=== PATIENT | male | born 1985 | race Caucasian/White ===

== ENCOUNTER 2021-09-11 07:38 | Outpatient (CLI) | payer BC, SELFPAY ==
--- NOTE | ~2021-09-11 | MR_ITS ---
EXAMINATION: MR MRCP wo/w con/w 3D wo ind DATE: 09/11/2021 09:48 INDICATION: Ulcerative pancolitis without complication. TECHNIQUE: Magnetic resonance imaging (MRI) of the abdomen was performed without and with 19 mL Multi Alen intravenous contrast. Sequences included coronal T2-weighted FS FSE, coronal T2-weighted FSE, a xial T1-weighted LAVA, coronal FS FIESTA, axial dual-echo T1-weighted SPGR, coronal lava-FLEX, sagitt al T2-weighted FSE, axial T2-weighted FSE, and axial DWI. Thick-slab T2-weighted FSE images were obta ined for magnetic resonance cholangiopancreatography (MRCP). Maximum intensity projection 3-D reconst ructions of the volumetric data were created by the technologist. Postcontrast sequences included cor onal LAVA-flex and time course of axial T1-weighted LAVA. COMPARISON: CT abdomen and pelvis 07/02/2009 FINDINGS: ABDOMEN MRI: There is severe splenomegaly measuring 25.2 cm. There are Gamna-Shannan bodies in the sple en. The liver, gallbladder, pancreas, adrenal glands, and kidneys are normal. There are no dilated lo ops of bowel. The colon is normal. There are no pathologically enlarged lymph nodes. There is no free intraperitoneal fluid. ABDOMEN MRCP: The common duct is normal and measures 4 mm. IMPRESSION: 1. Chronic severe splenomegaly. Reviewed, dictated and finalized at location B. WIRE GLASS TUBE CUTTER
[2021-09-11 09:02] LABS: Estimated Glomerular Filt Rate > 60
== END 2021-09-11 07:39 | disposition home or self-care (01) ==
DX: K51.00 Ulcerative (chronic) pancolitis without complications (principal); E80.6 Other disorders of bilirubin metabolism; R16.1 Splenomegaly, not elsewhere classified
CPT/HCPCS: 74183; 76376; A9577

== ENCOUNTER 2022-04-08 08:09 | Outpatient (CLI) | payer BC, SELFPAY ==
[2022-04-08 08:27] LABS: Hematocrit 32.8 % (42.0-52.0); Hemoglobin 11.8 g/dL (14.0-18.0)
== END 2022-04-08 08:10 | disposition home or self-care (01) ==
PROVIDERS: Anesthesiology; PCP Family Medicine; Visit Provider Surgery
DX: K40.90 Unilateral inguinal hernia, without obstruction or gangrene, not specified as recurrent (principal); D58.0 Hereditary spherocytosis; Z01.818 Encounter for other preprocedural examination
CPT/HCPCS: 36415; 85014; 85018; 86850; 86900; 86901

== ENCOUNTER 2022-04-09 00:27 | Day surgery (SDC) | payer BC, SELFPAY ==
[2022-04-01 08:33] VITALS: BMI 27.1
--- NOTE | 2022-04-01 08:44 | PC.NURSE ---
Report to the Outpatient Waiting Room, entrance under the green pavilion located off [facility], at time 6:00 on date 04/09/22. OR Time: 7:30. - You and your visitor will be asked a series of questions to screen for COVID 19 for your protection. - Only one visitor is allowed at this time. - The patient visitor is requested to leave or wait in car when not with patient. - A mask is required within the hospital. Patients may have clear liquids (water, carbonated beverages, clear teas, apple juice) until 3 hours prior to surgery (4:30) with a maximum of 20 ounces. - No food from midnight until time of surgery Take the following medications with a SIP of water the morning of surgery: NONE Medications to discontinue per physician: VITAMINS/SUPPLEMENTS Date to take last dose: 04/05/22 Please no make-up, nail v[place] citizen, hairspray, perfume, deodorant, or body powder the day of surgery. No jewelry (including any body piercings) or valuables the day of surgery, leave them at home. Please take a shower or bath the night before, or the morning of, surgery with an antibacterial soap. Wear comfortable, loose fitting clothing. HIBICLENS SHOWER - Jewelry must be removed prior to entering the operating room. Rings and piercings that are not removed may be cut off. - The hospital will not accept responsibility for valuables. - Please leave all valuables, including medications, at home the day of surgery. If you are going home after surgery, a licensed car pick up driver must drive you home. - NO public transportation without another adult. - We recommend that an adult stay with you for 24 hours following discharge. - We also recommend that you do not drive, make important decision, drink alcoholic beverages, or take any drugs that were not prescribed by your health care provider for at least 24 hours after your discharge time. Follow any additional instructions given to you from your surgeon. If you or anyone in your household have experienced Covid symptoms in the past week, please notify your surgeon or the nurse liaison at the phone number below for possible testing. Telephone instructions given to PT - PAVEL JIMENEZ and asked if any additional questions and then verbalized understanding. Patient advised to call surgeon office or pre surgery nurse liaison [phone] if any additional questions.
--- NOTE | 2022-04-08 14:51 | P.PNAN_ITS ---
Anes - Initial Pre Proc Eval Procedure: Operation Date: 04/09/22 07:30 Proposed Procedures p Laparoscopic Right Inguinal Hernia with Repair with Mesh, Davinci Assisted - Zeb Huertas DO s Umbilical Hernia Repair - Zeb Huertas DO Date/Time: 04/08/22 14:51 Surgeon: Zeb Huertas DO Pre Op Diagnosis: Right Ing Hernia, Umbilical Hernia Patient Data Age: 36 Gender: M Height: 1.83 m Weight: 90.72 kg Allergies Allergy/AdvReac Type Severity Reaction Status Date / Time Sulfa (Sulfonamide Allergy Unknown Other Verified 04/01/22 08:32 Antibiotics) sulfasalazine Allergy Unknown Other Verified 04/01/22 08:32 Home Medications Medication Instructions Recorded Confirmed Type ferrous sulfate 325 mg (65 mg 325 mg PO DAILY 04/01/22 04/01/22 History iron) tablet (Iron (ferrous sulfate)) multivitamin 1 tablet PO DAILY 04/01/22 04/01/22 History Patient hx anesthesia problems: none Family hx anesthesia problems: none Results Review: All pre-operative results and documents have been reviewed as part of the pre- operative evaluation. [facility] Past Medical History Medical History (Updated 04/08/22 @ 14:51 by Roc Flores MD) BMI 27.0-27.9,adult Hereditary spherocytosis Ulcerative colitis Surgical History Surgical History H/O knee surgery 1999 Family History Family History Father Family history of blood dyscrasia Patient's father is in good health Sibling Family history of blood dyscrasia Patient's sister is in good health Mother Patient's mother is in good health Family history of allergic disorder Other Family history of arthritis Family history of gout Hypertension Social History Social History Smoking status: Never smoker Alcohol intake: current Drinks per week: 3 Substance use: never Substance use type: does not use Living arrangements: with family Additional occupation/education comments: Insurance Rep Gender identity (if verbalized by the patient): Male Sexual Orientation (if Verbalized by the Patient): Straight or Heterosexual Spiritual care concerns: No Anes - Eval Final PreProcedure Day of Procedure 04/08/22 14:51 Patient weight: overweight Heart: regular rate and rhythm Lungs: clear to auscultation and normal air movement Airway: Mallampati scale class II Neurological: alert and oriented Last oral intake: >/= 8 hours ASA classification: II Emergent: no Anesthetic plan: proceed Anesthesia type and monitoring: general ETT Results Review: All pre-operative results and documents have been reviewed as part of the pre- operative evaluation. Informed Consent: The patient's anesthetic plan and its attendant risks and benefits were discussed with the patient/family/POA. Questions were solicited and answers provided to the satisfaction of the patient/family/POA.
[2022-04-09] VITALS (11 sets, daily range): BP systolic 107–131; BP diastolic 65–81; PULSE 62–85; RESP 10–20; TEMP 36.3–36.7; O2SAT 96–100
[2022-04-09] MEDS: LACTATED RINGERS 1,000 ML 30 ML IV CONT ×3 (06:40→11:25)
[2022-04-09] MEDS: ACETAMINOPHEN 500 MG TABLET 1000 MG PO (06:45)
[2022-04-09] MEDS: KETOROLAC 15 MG/ML VIAL (*BKC) IV PUSH (07:00)
--- NOTE | 2022-04-09 07:15 | WPDHPUPDATE1 ---
History and Physical Update Update Date/Time: 04/09/22 07:15 History and Physical has been reviewed, including an updated exam of the patient. There are NO changes in the patient's condition. Risks, benefits, and alternatives have been discussed and questions answered. Patient agrees to proceed with procedure.
[2022-04-09] MEDS: ceFAZolin 2 GM/D5W 50 ML 2 GM/50 ML BAG IVPB (07:27)
[2022-04-09] MEDS: BUPIVACAINE/EPINEPHRINE 0.25% 50 ML VIAL 30 ML INFILTRATE (07:53)
--- NOTE | 2022-04-09 08:57 | W.PM.PROC2 ---
Procedure Note - Detailed Date of Procedure 04/09/22 Pre-op Diagnosis Right Ing Hernia, Umbilical Hernia Post-op Diagnosis Same (Direct right inguinal hernia, umbilical hernia) Procedure Performed 1. Open umbilical hernia repair 2. Laparoscopic right inguinal hernia repair with mesh, da Drew assisted Surgeon Zeb Huertas, Anesthesia General and Local (0.5% bupivacaine with epinephrine) Indications This is a 36-year-old man who presented with a right groin bulge that he noticed about 4 months ago. He was experiencing some discomfort with working out and has had some increased discomfort recently. On exam is found to have a reducible right inguinal hernia. He was also noted to have a small umbilical hernia. Discussions were made with the patient about treatment options and decision was made to proceed with robotic assisted laparoscopic right inguinal hernia repair with mesh and open umbilical hernia repair. Findings Open umbilical hernia repair was performed. The laparoscopic right inguinal hernia repair was performed initially and then after removing the laparoscopic ports I then extended the incision at the umbilicus and repaired the umbilical hernia. The umbilical hernia measured about 1 cm. This was repaired primarily using 0 Ethibond sutures. The patient's right inguinal hernia appeared to be a small direct inguinal hernia. There was no evidence of left inguinal hernia. A robotic transabdominal preperitoneal approach was utilized. Once a wide enough preperitoneal plane was created, a large right Bard 3DMax mid mesh was placed overlying the entire right myopectineal orifice. No specimens were obtained for pathology. Description of Procedure Procedure as well as risks, benefits, and alternatives were discussed with the patient. Written consent was obtained and placed in chart prior to procedure. Patient was brought back to surgical suite. He was placed supine on operating table. Time-out was done to confirm patient and procedure. He was then intubated by Anesthesia Department. His abdomen was prepped and draped in sterile fashion using chlorhexidine prep. 0.5% bupivacaine with epinephrine was infiltrated at each location for incision. A 12 millimeter transverse incision was made just superior to the umbilicus using a 15 blade scalpel. Blunt dissection was carried out down to the linea alba. A vertical incision was made at the linea alba using a 15 blade scalpel. The peritoneum was then bluntly entered. A 12 millimeter trocar was inserted and carbon dioxide insufflation was used to create a pneumoperitoneum. A camera was inserted and the abdominal cavity was inspected. The patient was placed in slight Trendelenburg position. An 8 millimeter incision was made on the right lateral abdomen and an 8 millimeter trocar was inserted under direct visualization. Another 8 millimeter incision was made in the left lateral abdomen and an 8 millimeter trocar was inserted under direct visualization. The robotic arms were brought up to the patient's bedside and secured to the ports. The camera and instruments were inserted. I then moved over to the robotic console and took control of the camera and instruments. After careful inspection of the abdominal cavity, I began scoring the peritoneum along the right lower quadrant using scissors with electrocautery. The preperitoneal plane was entered and this was carefully dissected caudally along the inferior epigastric vessels. Careful dissection with scissors with electrocautery and blunt dissection was used to continue this dissection. I dissected far enough laterally to allow for mesh placement, and also dissected medially to identify the pubic arch and Cal's ligament. The hernia sac was identified and carefully dissected posteriorly. The cord contents were also identified and the peritoneum was carefully dissected far enough posteriorly to allow for mesh placement. Once an adequate pocket was cr
[2022-04-09] MEDS: fentaNYL CITRATE INJ (*CRX) 100 MCG/2 ML VIAL 25 MCG IV PUSH ×5 (09:17→09:44)
[2022-04-09] MEDS: oxyCODONE HCL (*CRX) 5 MG TAB IR PO (10:08)
== END 2022-04-09 12:50 | disposition home or self-care (01) ==
PROVIDERS: PCP Family Medicine; Visit Provider Surgery
PROC: 8E0Y4CZ Robotic Assisted Procedure of Lower Extremity, Percutaneous Endoscopic Approach (ICD-10-PCS; CPT 49650; principal; 2022-04-09 07:30)
PROC: (CPT 49650; 2022-04-09 07:30)
DX: K40.90 Unilateral inguinal hernia, without obstruction or gangrene, not specified as recurrent (principal); K42.9 Umbilical hernia without obstruction or gangrene; D58.0 Hereditary spherocytosis
CPT/HCPCS: 49650; S2900; A9270; C1781; J0690; J1100; J1885; J2250; J2405; J2704; J2710; J3010; J7030; J7120

== ENCOUNTER 2022-07-15 10:38 | Outpatient (CLI) | payer BC, SELFPAY ==
--- NOTE | ~2022-07-15 | US_ITS ---
EXAMINATION: US abdomen complete DATE: 07/15/2022 11:19 INDICATION: ABD FINDINGS ON DIAG IMAGING OF LIVER TECHNIQUE: Multiple grayscale and Doppler ultrasound images of the abdomen were obtained. COMPARISON: None available. FINDINGS: The visualized portions of the pancreas are normal. The liver is normal with normal echogen icity and echotexture. No surface nodularity. Normal hepatopetal flow in the main portal vein. The ga llbladder is normal with no abnormal wall thickening, pericholecystic fluid or stones. The common jr e duct measures 5 mm. There was no sonographic Meyers sign. The visualized portions of the aorta and inferior vena cava are normal. The right kidney measures 12.6 x 4.9 x 4.6. The left kidney measures 13.4 x 4.2 x 6.9 cm. The kidneys demonstrate normal parenchymal echogenicity. There is no hydronephrosis. The spleen is normal in mirian earance and measures 19.6 cm. IMPRESSION: Splenomegaly. Reviewed, dictated and finalized at location K. IMPRESSION: Splenomegaly.
== END 2022-07-15 10:39 | disposition home or self-care (01) ==
PROVIDERS: PCP Family Medicine
DX: R93.2 Abnormal findings on diagnostic imaging of liver and biliary tract (principal); R16.1 Splenomegaly, not elsewhere classified
CPT/HCPCS: 76700

== ENCOUNTER 2024-08-31 12:12 | Outpatient (CLI) | payer BC, SELFPAY ==
--- NOTE | ~2024-08-31 | CT_ITS ---
CT abdomen pelvis wo con Ordering provider: Tal CottoMarek History: 39 years Male with . RLQ Pain . Comparison: None. Technique: CT abdomen and pelvis without IV and without oral contrast. Automated exposure control and iterative reconstruction technique were employed. The dose-length product was 403.83 mGy-cm. Findings: VISUALIZED LOWER CHEST: Normal. UPPER ABDOMINAL ORGANS: Liver: Hepatomegaly. Gallbladder: Normal. Spleen: Splenomegaly. Prominent varices in the splenic hilum are noted which is suggestive of portal hypertension. Stomach/duodenum: Normal. Pancreas: Normal. Adrenals: Normal. Kidneys: Normal. PELVIC ORGANS: The bladder is underfilled. Hyperdense area seen posterior to the prostate. Clinical correlation advised. BOWEL AND MESENTERY: Colon: No evidence of diverticulitis. Fecal material is loaded in the colon. Normal appendix. Small Bowel: Normal. No obstruction. Peritoneum/mesentery: No free air or free fluid. No mesenteric lymphadenopathy. RETROPERITONEUM: Normal aorta. No retroperitoneal lymphadenopathy. MUSCULOSKELETAL: Superficial soft tissues: The superficial soft tissues are normal. Bones: Normal spine. IMPRESSION: 1. Splenomegaly with highly suggestive portal hypertension. 2. Hepatomegaly 3. Constipation. 4. No evidence of appendicitis, diverticulitis or intestinal obstruction. 5. Hyperdense area seen posterior to the prostate which may be foreign body. Clinical correlation ad vised. Reviewed, dictated and finalized at location A. T SUPERVISOR IMPRESSION: 1. Splenomegaly with highly suggestive portal hypertension. 2. Hepatomegaly 3. Constipation. 4. No evidence of appendicitis, diverticulitis or intestinal obstruction. 5. Hyperdense area seen posterior to the prostate which may be foreign body. C linical correlation advised.
== END 2024-08-31 12:13 | disposition home or self-care (01) ==
LOC: ANHIMG 12:18
PROVIDERS: PCP Family Medicine; Visit Provider Family Medicine
DX: R16.1 Splenomegaly, not elsewhere classified (principal); K59.00 Constipation, unspecified
CPT/HCPCS: 74176

== ENCOUNTER 2024-10-19 19:44 | Emergency (ER) | payer BC, SELFPAY ==
--- NOTE | ~2024-10-19 | US_ITS ---
Testicular ultrasound with doppler. Indication: Right testicular pain and swelling. Technique: Real-time sonography the scrotum was performed. Color flow Doppler and Doppler spectral an alysis were performed. Findings: The testes are homogeneous in echotexture bilaterally. There is no evidence of an intrates ticular mass. The right testis measures 4.1 x 2.3 x 3.4 cm and the left 3.2 x 2.1 x 3.4 cm. There is color-flow seen to both testes. Arterial and venous spectral waveforms are seen in both testes. There is no sonographic evidence of torsion. Probable mild increased vascularity of the right testis as co mpared to the left. Right epididymis is enlarged and hypervascular as compared to the left side. Ther e is an apparent 1.1 x 1.0 x 0.9 cm hypoechoic mass posteriorly within the right epididymis, lateral to the right testicle. Impression: Right epididymoorchitis. No evidence of torsion. Possible 1 cm hypoechoic mass within the enlarged right epididymis. This is nonspecific, but epididym al masses are most commonly benign. Consider follow-up exam after interval therapy. Reviewed, dictated and finalized at [facility]. R EDITOR Impression: Right epididymoorchitis. No evidence of torsion. Possible 1 cm hypoechoic mass within the enlarged right epididymis. This is non specific, but epididymal masses are most commonly benign. Consider follow-up ex am after interval therapy.
--- NOTE | ~2024-10-19 | CT_ITS ---
CT of the Abdomen and Pelvis: Indication: Abdominal pain Technique: 2.5 mm axial scans were obtained through the abdomen and pelvis following intravenous adm inistration of 100 cc of Omnipaque 350. Dose reduction technique was used on this scan by utilizing a utomated exposure control and iterative reconstruction technique. The dose-length product (DLP) was 6 32.10 mGy-cm. COMPARISON: 08/31/2024 Findings: Scans through the lung bases are unremarkable. The liver, pancreas, gallbladder, adrenals and kidneys are within normal limits. There is marked sple nomegaly, with spleen measuring 24 cm in length. No evidence of aortic aneurysm. No lymphadenopathy. There is wall thickening of the distal sigmoid colon and rectum, with possible minimal pericolonic in flammatory change. No bowel obstruction. No abscess or free air. Images through the pelvis were performed. Urinary bladder unremarkable. No pelvic mass evident. No as cites. Impression: Probable infectious/inflammatory colitis involving the distal sigmoid colon and rectum. Marked splenomegaly, of uncertain etiology. Reviewed, dictated and finalized at [facility]. RPRISE CLOUD ARCHITECT Impression: Probable infectious/inflammatory colitis involving the distal sigmoid colon and rectum. Marked splenomegaly, of uncertain etiology.
--- OUTSIDE RECORDS SUMMARY | 2024-10-19 19:46 | XMS_ITS | Patient Health Summary ---
Author Organization [facility] Address [address] [place] [address] Care Team Providers Care Lead Massage Therapist Name Role Phone Unavailable Primary Care Provider Unavailabl e Note from [facility],non-owned Affiliates and Associated Physician Practices is amultiple site organization consisting of ambulatory clinics and hospital sitesin [place], [place], [place]. This disclosure is being madepursuant to the Care Everywhere program and may not contain all information available regarding this patient. Last updated 18.[facility] Allergies * Sulfa Drugs(Unknown) Medications * Be aware that medications may not be up to date on this document. Alwaysverify current medications with the patient. * InFLIXimab (REMICADE IV)(Started 08/22/2010) by Intravenous route every 60 days. * azathioprine (IMURAN) 50 MG tablet Take 150 mg by mouth daily. * pentosan polysulfate sodium (ELMIRON) 100 MG capsule(Started 08/23/2010) Take 1 Cap by mouth 3 times daily before meals. 3 refills left * fesoterodine CR 24hr (TOVIAZ) 4 MG tablet(Started 08/23/2010) Take 1 Tab by mouth 2 times daily. 3 refills left * multivitamin daily (THERAGRAN) tablet Take 1 Tab by mouth daily with food. Active Problems No known active problems Social History Tobacco Use Types Packs/Day Years Used Date Smoking Tobacco: Never Smokeless Tobacco: Never Alcohol Use Standard Drinks/Week Comments Yes 0 (1 standard drink = 0.6 oz pur e alcohol) rarely Sex and Gender Information Value Date Recorded Sex Assigned at Not on file Gender Identity Not on file Sexual Orientation Not on file Last Filed Vital Signs Vital Sign Reading Time Taken Comments Blood Pressure 100/51 04/15/2011 2:21 PM CDT Pulse 70 04/15/2011 2:21 PM CDT Temperature 35.7 C (96.2 F) 04/15/2011 2:21 PM CDT Respiratory Rate 16 04/15/2011 2:21 PM CDT Oxygen Saturation 94% 04/15/2011 2:21 PM CDT Inhaled Oxygen Concentration - - Weight 80.6 kg (177 lb 11.1 oz) 011 11:04 AM CDT Height 182.9 cm (6') 04/15/2011 11:04 AM CDT Body Mass Index 24.1 04/15/2011 11:04 AM CDT Procedures * FL UROGRAM RETROGRADE(Performed 04/15/2011) Performed for Urinary frequency Results * FL FLUORO RETROGRADE PYELOGRAM W/WO KUB (04/15/2011 3:29 PM CDT) Anatomical Region Laterality Modality Abdomen Radiographic Rhea ging 04/15/2011 3:44 PM CDT Narrative 04/15/2011 3:49 PM CDT FLUOROSCOPIC RETROGRADE PYELOGRAM CLINICAL INDICATION: Flank pain. DESCRIPTION: The procedure was performed a Dr. Goodman in the operating room. No radiologist was present. Images demonstrate opacification of the bilateral collecting systems. There is prominence to the right renal pelvis and calyces. A small filling defect is seen in the distal left ureter which presumably represents an air bubble. Procedure Note Rachna Shearer MD - 04/15/2011 FLUOROSCOPIC RETROGRADE PYELOGRAM CLINICAL INDICATION: Flank pain. DESCRIPTION: The procedure was performed a Dr. Goodman in the operating room. No radiologist was present. Images demonstrate opacification of the bilateral collecting systems. There is prominence to the right renal pelvis and calyces. A small filling defect is seen in the distal left ureter which presumably represents an air bubble. Robin Goodman MD FLUOROSCOPY ORDERABL ES
--- OUTSIDE RECORDS SUMMARY | 2024-10-19 19:46 | XMS_ITS | Clinical Summary ---
Author Organization [facility] Address [address] [place] [address] Care Team Providers Care Laundry Room Attendant Name Role Phone Unavailable Primary Care Provider Unavailabl e Source Comments [facility],non-owned Affiliates and Associated Physician Practices is amultiple site organization consisting of ambulatory clinics and hospital sitesin [place], [place], [place] and [place]. This disclosure is being madepursuant to the Care Everywhere program and may not contain all information available regarding this patient. Last updated 18.[facility] [employer] Allergies Active Allergy Reactions Criticality Noted Date Comments Sulfa Drugs Unknown 08/22/2010 Medications * Be aware that medications may not be up to date on this document. Alwaysverify current medications with the patient. Medication Sig Dispensed Refills Start Date End Date Status InFLIXimab (REMICADE IV) by Intravenous route every 60 days. 08/22/2010 Active azathioprine (IMURAN) 50 MG tablet Take 150 mg by mouth daily. Active pentosan polysulfate sodium (ELMIRON) 100 MG capsule Take 1 Cap by mouth 3 times daily before meals. 90 Cap 3 08/23/2010 Active fesoterodine CR 24hr (TOVIAZ) 4 MG tablet Take 1 Tab by mouth 2 times daily. 60 Tab 3 08/23/2010 Active multivitamin daily (THERAGRAN) tablet Take 1 Tab by mouth daily with food. Active Active Problems No known active problems Social [...] Mass Index 24.1 04/15/2011 11:04 AM CDT Plan of Treatment Health Maintenance Due Date Last Done Comments LIPID TESTING 1983 COVID-19 VACCINE (#1) 1988 HIV SCREENING 1998 HEPATITIS C SCREENING 05/28/2001 DTAP/TDAP/TD VACCINES (1 - Tdap) 2002 HEPATITIS B VACCINE (1 of 3 - 19+ 3-dose series) 2002 PNEUMOCOCCAL VACCINE (1 of 2 - PCV) 2002 ZOSTER VACCINE (1 of 2) 2002 INFLUENZA VACCINE (#1) 2024 DEPRESSION SCREENING 09/14/2024 HIB VACCINE Aged Out No longer eligi ble based on patient's age to complete this topic HPV VACCINE Aged Out No longer eligi ble based on patient's age to complete this topic MENINGOCOCCAL (Group B) VACCINE Aged Out No longer eligible based on patient's age to complete this topic MENINGOCOCCAL VACCINE Aged Out No matthew calista eligible based on patient's age to complete this topic
--- OUTSIDE RECORDS SUMMARY | 2024-10-19 19:46 | XMS_ITS | Encounter Summary ---
Author Organization [facility] Healthcare Address [address] [place] [address] Care Team Providers Care Account Support Associate Name Role Phone Tal Cotto MD Primary Care Provider [phone] Reason for Referral * Diagnostic Lab (Routine) - Pending Review Specialty Diagnoses / Procedures Referred By Contac t Referred To Contact Lab Diagnoses Spherocytosis (CMS/HCC) (HCC) Ulcerative colitis with complication, unspecified location (HCC) Procedures calprotectin fecal - Miscellaneous Test calprotectin fecal - [place] [address] [place] [address] Phone: tel: fax: Referral ID Status Reason Start Date Expiration Date V isits Requested Visits Authorized [id number] Pending Review 12/15/2023 01/13/2025 1 1 MILL WORKER Encounter Details Date Type Department Care Team (Latest Contact Info) Description 10/18/2024 2:21 PM DRY MILL WORKER - 10/18/2024 11:59 PM DRY MILL WORKER Hospital Encounter [facility] [address] [place] [address] Spherocytosis (CMS/HCC) (HCC); Ulcerative colitis with complication, unspecified location (HCC) Discharge Disposition: Discharge to home or self care Social History Tobacco Use Types Packs/Day Years Used Date Smoking Tobacco: Never Smokeless Tobacco: Never PHQ-2 Answer Date Recorded PHQ-2 Total Score (If total score is 3 or more points, staff should administer the PHQ-9) 0 09/20/2024 Sex and Gender Information Value Date Recorded Sex Assigned at Not on file Legal Sex Male 1:12 AM DRY MILL WORKER Gender Identity Not on file Sexual Orientation Not on file documented as of this encounter Medications at Time of Discharge ferrous sulfate 325 mg (65 mg of elemental iron) tablet 05/22/2016 magnesium gluconate 200 mg tabletIndications :hypomagnesemia 1 tablet (200 mg total) multivitamin tablet,chewable Take by mouth vedolizumab (ENTYVIO) 300 mg recon soln 5 mL (300 mg total) documented as of this encounter Discharge Disposition Disposition Code Departure Means Destination Discharge to home or self care documented in this encounter Plan of Treatment Pending Results Name Type Priority Associated Diagnoses Date /Time calprotectin fecal - Miscellaneous Lab Test Lab Routine Spherocytosis (CMS/HCC) (HCC) Ulcerative colitis with complication, unspecified location (HCC) 10/18/2024 2:21 PM DRY MILL WORKER Scheduled Orders Name Type Priority Associated Diagnoses Orde r Schedule calprotectin fecal - Miscellaneous Test Lab Routine Spherocytosis (CMS/HCC) (HCC) Ulcerative colitis with complication, unspecified location (HCC) Once for 1 Occurrences starting 10/18/2024 until 10/18/2024 documented as of this encounter Visit Diagnoses Diagnosis Spherocytosis (CMS/HCC) (HCC) Hereditary spherocytosis Ulcerative colitis with complication, unspecified location (HCC) documented in this encounter Care Teams Account Support Associate Relationship Specialty Start Date End Date Tal Cotto MD [address] [place] [address] PCP - General Family Medicine 03/06/22 documented as of this encounter
--- OUTSIDE RECORDS SUMMARY | 2024-10-19 19:46 | XMS_ITS | Encounter Summary ---
Author Organization [facility] Healthcare Address [address] [place] [address] Care Team Providers Care Relay Technician Name Role Phone Tal Cotto MD Primary Care Provider [phone] Encounter Details Date Type Department Care Team (Late st Contact Info) Description 10/18/2024 2:15 PM HOTEL GENERAL MANAGER Lab [facility] Outpatient Lab at [address] [id number] Social History Tobacco Use Types Packs/Day Years Used Date Smoking Tobacco: Never Smokeless Tobacco: Never PHQ-2 Answer Date Recorded PHQ-2 Total Score (If total score is 3 or more points, staff should administer the PHQ-9) 0 09/20/2024 Sex and Gender Information Value Date Recorded Sex Assigned at Not on file Legal Sex Male 1:12 AM HOTEL GENERAL MANAGER Gender Identity Not on file Sexual Orientation Not on file documented as of this encounter Plan of Treatment Not on file documented as of this encounter Visit Diagnoses Not on filedocumented in this encounter Care Teams Relay Technician Relationship Specialty Start Date End [place] [address] PCP - General Family Medicine 03/06/22 documented as of this encounter
--- OUTSIDE RECORDS SUMMARY | 2024-10-19 19:46 | XMS_ITS | Referral Summary ---
Author Organization [facility] Address [address] [place] [address] Care Team Providers Care Floor Coverer Name Role Phone Unavailable Primary Care Provider Unavailabl e Source Comments [facility],non-owned Affiliates and Associated Physician Practices is amultiple site organization consisting of ambulatory clinics and hospital sitesin [place], [place], [place] and [place]. This disclosure is being madepursuant to the Care Everywhere program and may not contain all information available regarding this patient. Last updated 18.[facility] [employer] Allergies Active Allergy Reactions Criticality Noted Date [...] 04/15/2011 11:04 AM CDT Plan of Treatment Not on file
--- OUTSIDE RECORDS SUMMARY | 2024-10-19 19:46 | XMS_ITS | Clinical Summary ---
Author Organization [facility] [place] [address] [facility] Address [address] [place] [address] Care Team Providers Care Group Captain Name Role Phone Tal Cotto MD Primary Care Provider [phone] Allergies Active Allergy Reactions Criticality Noted Date Comments Sulfa (Sulfonamide Antibiotics) Medications ferrous sulfate 325 mg (65 mg of elemental iron) tablet 6 Active vedolizumab (ENTYVIO) 300 mg recon soln 5 mL (300 mg total) Active multivitamin tablet,chewable Take by mouth Active magnesium gluconate 200 mg tabletIndicatio ns:hypomagnesem ia 1 tablet (200 mg total) Active doxycycline hyclate 100 mg capsule 4 09/20/19 25 Discontinu ed(Therapy completed) Active Problems Problem Noted Date Diagnosed Date Dyspepsia 09/20/2024 History of right inguinal hernia 08/31/2024 Assessment & Plan (08/31/2024 10:44 AM BAGGER AND STOCK HANDLER HELPER): No palpable recurrent hernia on exam. Suspicous for possible nerve entrapment and will monitor respnose. Sperm granuloma of epididymis 08/31/2024 Assessment & Plan (08/31/2024 10:44 AM BAGGER AND STOCK HANDLER HELPER): Continue f/u with urology. Complete course of doxycycline and will follow response. RLQ abdominal pain 08/31/2024 Assessment & Plan (08/31/2024 10:45 AM BAGGER AND STOCK HANDLER HELPER): No evidence of an acute abdomen. No rebound/no periotoneal s/s. Check for anatomic evaluation of the right lower quadrant and will monitor response. Reviwed ER warning s/s. Annual physical exam 07/05/2024 Ulcerative colitis with complication, unspecifie d location 12/15/2023 Assessment & Plan (08/31/2024 10:44 AM BAGGER AND STOCK HANDLER HELPER): No blood in the stools, no change in diet, no f/c. Continues on entyvio and willl follow response. Spherocytosis (CMS/HCC) 12/15/2023 Chronic ulcerative pancolitis (CMS/HCC) 06/25/20 20 Polyp of colon 06/25/2020 Encounters Date Type Department Care Team Description 10/18/2024 2:21 PM BAGGER AND STOCK HANDLER HELPER - 10/18/2024 11:59 PM BAGGER AND STOCK HANDLER HELPER Hospital Encounter [address] [address] Spherocytosis (CMS/HCC) (HCC); Ulcerative colitis with complication, unspecified location (HCC) Discharge Disposition: Discharge to home or self care 10/18/2024 2:15 PM BAGGER AND STOCK HANDLER HELPER Lab [facility] Outpatient Lab at [address] [phone] 09/28/2024 Telephone [facility] [address] [phone] Tal Cotto MD Additional Services Or Orders 09/21/2024 Telephone [facility] [address] [phone] Tal Cotto MD Test Results 09/20/2024 3:30 PM BAGGER AND STOCK HANDLER HELPER Lab [facility] Outpatient Lab at [address] [phone] 09/20/2024 3:14 PM BAGGER AND STOCK HANDLER HELPER - 09/20/2024 11:59 PM BAGGER AND STOCK HANDLER HELPER Hospital Encounter [address] [address] Dyspepsia Discharge Disposition: Discharge to home or self care 09/20/2024 3:00 PM BAGGER AND STOCK HANDLER HELPER Office Visit [facility] Primary Care at [address] [phone] Tal Cotto MD Dyspepsia (Primary Dx); Ulcerative chronic pancolitis without complications (CMS/HCC) (HCC) 09/16/2024 2:00 PM BAGGER AND STOCK HANDLER HELPER Lab [facility] Outpatient Lab at [address] [phone] Ulcerative colitis with complication, unspecified location (HCC) (Primary Dx); RLQ abdominal pain 09/16/2024 9:15 AM BAGGER AND STOCK HANDLER HELPER - 09/16/2024 11:59 PM BAGGER AND STOCK HANDLER HELPER [place] [address] Annual physical exam Discharge Disposition: Discharge to home or self care 09/16/2024 Telephone [facility] [address] [address] Tal Cotto MD 09/01/2024 Telephone [facility] [address] [address] Tal Cotto MD Test Results 08/31/2024 10:00 AM BAGGER AND STOCK HANDLER HELPER Office Visit [facility] [address] [phone] Tal Cotto MD RLQ abdominal pain (Primary Dx); Sperm granuloma of epididymis; Ulcerative colitis with complication, unspecified location (HCC); History of right inguinal hernia 08/31/2024 Orders Only [facility] [address] [phone] Tal Cotto MD RLQ abdominal pain 08/31/2024 Telephone [facility] [address] [address] Monica Melgoza RN Diagnostic Testing (CT ABDOMEN PELVIS WO CONTRAST) 08/30/2024 Nurse Triage [facility] [address] [phone] Tal Cotto MD 08/10/2024 6:27 PM BAGGER AND STOCK HANDLER HELPER - 08/10/2024 11:59 PM BAGGER AND STOCK HANDLER HELPER Hospital Encounter [place] [phone] Pain in right testicle Discharge Disposition: Discharge to home or self care 08/10/2024 3:45 PM BAGGER AND STOCK HANDLER HELPER Office Visit [facility] at [address] [phone] Miriam Bassett NP Pain in right testicle (Primary Dx) 08/10/2024 Nurse Triage [facility] [address] [place] [address] Tal Cotto MD from Last 3 Months Immunizations Name Administration Dates Next Due Flucelvax Influenza Quad 07/25/2020,07/14/2019 H1N1 Inj Preservative Free 12/05/2010 Influenza, Quadrivalent, Spl it, Intramuscular 07/14/2019 Influenza, Quadrivalent, Spl it, Preservative Free, Intramuscular 06/16/2023,07/22/2021,06/13/2018,05/28 Influenza, Trivalent, IM (MDV) 06/04/2015 Influenza, Trivalent, Preser vative Free, Intramuscular 07/22/2012,07/17/2011 Influenza, Unspecified 09/20/2024(Deferr ed: Patient Refused),08/31/2024(Deferred: Patient Refused),07/05/2024(Deferred: Patient Refused),12/15/2023(Deferred: Patient Refused),09/14/2023(Deferred: Patient Refused),06/16/2023(Deferred: Patient Refused),09/14/2022(Deferred: Patient Refused),06/10/2022,03/07/2022(Deferre d: Patient Refused),05/15/2021(Deferred: Patient Refused) Pneumococcal Conjugate PCV 13 06/10/2022 Pneumococcal Polysaccharide PPV23 12/05/2010 Tdap 02/11/2015 Medical History Medical History Date Comments Melena Melena - (Added by TW Conv) Abnormal weight loss Losing weig ht - (Added by TW Conv) Personal history of other di seases of the digestive system History of pancreatitis - (A dded by TW Conv) Personal history of other di seases of the digestive system History of ulcerative coliti s - (Added by TW Conv) Social History Tobacco Use Types Packs/Day Years Used Date Smoking Tobacco: Never Smokeless Tobacco: Never Tobacco Cessation:Counseling Given: Not Answered PHQ-2 Answer Date Recorded PHQ-2 Total Score (If total score is 3 or more points, staff should administer the PHQ-9) 0 09/20/2024 Sex and Gender Information Value Date Recorded Sex Assigned at Not on file Legal Sex Male 1:12 AM BAGGER AND STOCK HANDLER HELPER Gender Identity Not on file Sexual Orientation Not on file Obstetrics History Last Filed Vital Signs Vital Sign Reading Time Taken Comments Blood Pressure 124/70 09/20/2024 2:56 PM BAGGER AND STOCK HANDLER HELPER Pulse 63 09/20/2024 2:56 PM BAGGER AND STOCK HANDLER HELPER Temperature 36.7 C (98.1 F) 09/20/2024 2:56 PM BAGGER AND STOCK HANDLER HELPER Respiratory Rate 18 08/31/2024 10:0 1 AM BAGGER AND STOCK HANDLER HELPER Oxygen Saturation 98% 09/20/2024 2:56 PM BAGGER AND STOCK HANDLER HELPER Inhaled Oxygen Concentration - - Weight 84.8 kg (186 lb 14.4 oz) 09/20/2024 2:56 PM BAGGER AND STOCK HANDLER HELPER Height 182.9 cm (6') 09/20/2024 2:56 PM BAGGER AND STOCK HANDLER HELPER Body Mass Index 25.35 09/20/2024 2:56 PM BAGGER AND STOCK HANDLER HELPER Plan of Treatment Health Maintenance Due Date Last Done Comments Hepatitis C Screening 1983 Varicella Vaccines (1 of 2 - 13+ 2-dose series) 1996 Covid-19 Vaccine ( season) 2024 07/22/2021, 11/15/2020, 10/23/2020 DTaP/Tdap/Td Vaccine (2 - Td or Tdap) 02/11/2025 02/11/2015 Influenza Vaccine (#1) 2025 , 06/10/2022, 07/22/2021, Additional history exists Postponed from 05/15/2024 (Patient declined, but will receive in the future) Regular Well Visit/Exam 18-64 07/05/2025 07/05/2024 Depression Screening 09/20/2025 09/20/2024, 08/31/2024, 07/05/2024, Additional history exists Pneumococcal vaccine <65 Aged Out 06/10/2022, 11/13 No longer eligible based on patient's age to complete this topic Hepatitis B Screening Completed 12/15/2023 HPV Vaccines Aged Out No longer eligi ble based on patient's age to complete this topic Procedures Procedure Name Priority Date/Time Associated Diagnosis Comments EGFR Routine 09/20/2024 3:24 PM BAGGER AND STOCK HANDLER HELPER Dyspepsia DIFFERENTIAL AUTO Routine 09/20/2024 3:2 4 PM BAGGER AND STOCK HANDLER HELPER Dyspepsia LIPASE Routine 09/20/2024 3:24 PM BAGGER AND STOCK HANDLER HELPER Dyspepsia AMYLASE Routine 09/20/2024 3:24 PM BAGGER AND STOCK HANDLER HELPER Dyspepsia COMPREHENSIVE METABOLIC PANEL Routine 09/20/2024 3:24 PM BAGGER AND STOCK HANDLER HELPER Dyspepsia CBC WITH AUTO DIFFERENTIAL Routine 09/20/2024 3:24 PM BAGGER AND STOCK HANDLER HELPER Dyspepsia EGFR Routine 09/16/2024 1:50 PM BAGGER AND STOCK HANDLER HELPER Annual physical exam DIFFERENTIAL AUTO Routine 09/16/2024 1:5 0 PM BAGGER AND STOCK HANDLER HELPER Annual physical exam LIPID PANEL Routine 09/16/2024 1:50 PM BAGGER AND STOCK HANDLER HELPER Annual physical exam COMPREHENSIVE METABOLIC PANEL Routine 09/16/2024 1:50 PM BAGGER AND STOCK HANDLER HELPER Annual physical exam CBC WITH AUTO DIFFERENTIAL Routine 09/16/2024 1:50 PM BAGGER AND STOCK HANDLER HELPER Annual physical exam CT ABDOMEN PELVIS WO CONTRAST Schedule NEETA, Read NEETA (Appt Today, Awaiting Results) 08/31/2024 2:30 PM BAGGER AND STOCK HANDLER HELPER RLQ abdominal pain POCT URINALYSIS DIPSTICK Routine 08/10/2024 2:54 PM BAGGER AND STOCK HANDLER HELPER Pain in right testicle URINE CULTURE Routine 08/10/2024 12:00 PM BAGGER AND STOCK HANDLER HELPER Pain in right testicle from Last 3 Months Results * eGFR (09/20/2024 3:24 PM BAGGER AND STOCK HANDLER HELPER) eGFR >90 >=60 mL/min/1. 73 m2 Comment: Interpretive Data Reference Interval Normal >/= 90 mL/min/1.73m2 Mildly decreased* 60 - 89 mL/min/1.73m2 Mildly to moderately decreased 45 - 59 mL/min/1.73m2 Moderately to severely decreased 30 - 44 mL/min/1.73m2 Severely decreased 15 - 29 mL/min/1.73m2 Kidney Failure < 15 mL/min/1.73m2 *Relative to young adult level Estimated glomerular filtration rate is determined by the 2020 CKD-EPI equation recommended by the National Kidney Foundation (A Unifying Approach to GFR Estimation: Recommendations of the NKF-ASK Task Force on Reassessing the Inclusion of Race in Diagnosing Kidney Disease, JASN 2020). The CKD-EPI equation should not be used for patients with unstable renal function and has not been validated in children and those over 70. Current interpretive data was last reviewed 2021. Blood 09/20/2024 3:24 PM BAGGER AND STOCK HANDLER HELPER 09/20/2024 9:41 PM BAGGER AND STOCK HANDLER HELPER us Tal Cotto MD LAB BLOOD ORDERABLES Lien l Result [facility] [address] Department [place] [address] * (ABNORMAL) Differential, auto (09/20/2024 3:24 PM BAGGER AND STOCK HANDLER HELPER) Neutrophil abs 8.9(H) 1.5 - 6.5 K/cumm Imm gran abs 0.0 0.0 - 0.1 K/cumm [facility] Lymphocyte abs 3.1 0.8 - 3.3 K/cumm [facility] Monocyte abs 0.6 0.2 - 0.8 K/cumm [facility] Eosinophil abs 0.2 0.0 - 0.5 K/cumm [facility] Basophil abs 0.2(H) 0.0 - 0.1 K/cumm [facility] Neutrophil pct 68.3 % [facility] Comment: Interpretive Data Percent cell count reference ranges are not reported, since discordance with absolute values may lead to misinterpretation of CBC data. Current Interpretive Data was last revised on 2017. Imm gran pct 0.3 % [facility] Comment: Interpretive Data Percent cell count reference ranges are not reported, since discordance with absolute values may lead to misinterpretation of CBC data. Current Interpretive Data was last revised on 2017. Lymphocyte pct 23.5 % [facility] Comment: Interpretive Data Percent cell count reference ranges are not reported, since discordance with absolute values may lead to misinterpretation of CBC data. Current Interpretive Data was last revised on 2017. Monocyte pct 4.8 % [facility] Comment: Interpretive Data Percent cell count reference ranges are not reported, since discordance with absolute values may lead to misinterpretation of CBC data. Current Interpretive Data was last revised on 2017. Eosinophil pct 1.7 % [facility] Comment: Interpretive Data Percent cell count reference ranges are not reported, since discordance with absolute values may lead to misinterpretation of CBC data. Current Interpretive Data was last revised on 2017. Basophil pct 1.4 % [facility] Comment: Interpretive Data Percent cell count reference ranges are not reported, since discordance with absolute values may lead to misinterpretation of CBC data. Current Interpretive Data was last revised on 2017. Blood 09/20/2024 3:24 PM BAGGER AND STOCK HANDLER HELPER 09/20/2024 9:04 PM BAGGER AND STOCK HANDLER HELPER Tal Cotto MD LAB BLOOD ORDERABLES Lien angelina Result [facility] [address] Department [place] [address] * (ABNORMAL) CBC with auto differential (09/20/2024 3:24 PM BAGGER AND STOCK HANDLER HELPER) WBC 13.0(H) 3.8 - 9.9 K/cumm Hgb 10.8(L) 13.0 - 17.5 g/dL [facility] Hct 34.9(L) 38.9 - 50.3 % [facility] Plt 279 150 - 400 K/cumm [facility] MPV 11.4 9.1 - 12.3 fL [facility] RBC 3.59(L) 4.30 - 5.80 M/cumm [facility] MCV 97.2(H) 81.3 - 96.4 fL [facility] MCH 30.1 27.1 - 33.3 pg [facility] MCHC 30.9(L) 32.3 - 35.7 g/dL [facility] RDW CV 20.7(H) 11.1 - 14.9 % [facility] RDW SD 67.1(H) 35.7 - 48.1 fL [facility] NRBC abs 0.03(H) 0.00 - 0.01 K/cumm [facility] Blood 09/20/2024 3:24 PM BAGGER AND STOCK HANDLER HELPER 09/20/2024 9:04 PM BAGGER AND STOCK HANDLER HELPER Tal Cotto MD LAB BLOOD ORDERABLES Lien l Result Performing Organization Address [facility] de Phone Number [facility] [address] [place] [address] * Lipase (09/20/2024 3:24 PM BAGGER AND STOCK HANDLER HELPER) Lipase 35 10 - 99 Units/L Blood 09/20/2024 3:24 PM BAGGER AND STOCK HANDLER HELPER 09/20/2024 9:04 PM BAGGER AND STOCK HANDLER HELPER Tal Cotto MD LAB BLOOD ORDERABLES Lien l Result Performing Organization Address [facility] de Phone Number [facility] [address] Department [place] [address] * Amylase (09/20/2024 3:24 PM BAGGER AND STOCK HANDLER HELPER) Amylase 54 30 - 99 Units/L Blood 09/20/2024 3:24 PM BAGGER AND STOCK HANDLER HELPER 09/20/2024 9:04 PM BAGGER AND STOCK HANDLER HELPER Tal Cotto MD LAB BLOOD ORDERABLES Lien l Result [facility] [address] Department [place] [address] * (ABNORMAL) Comprehensive metabolic panel (09/20/2024 3:24 PM BAGGER AND STOCK HANDLER HELPER) Sodium 140 135 - 145 mmol/L Potassium, pl 4.2 3.3 - 4.9 mmol/L [facility] Chloride 102 97 - 110 mmol/L [facility] CO2 24 22 - 32 mmol/L [facility] Anion gap 14 2 - 15 mmol/L [facility] BUN 12 6 - 25 mg/dL [facility] Creatinine 0.86 0.80 - 1.30 mg/dL [facility] Comment:Icteric sample, test results may be affected. Glucose 84 70 - 199 mg/dL [facility] Comment: Interpretive Data Fasting glucose >/= 126 mg/dl is diagnostic for diabetes. Fasting is defined as no caloric intake for at least 8 hours. Fasting glucose between 100 mg/dl to 125 mg/dl is diagnostic of prediabetes. In a patient with classic symptoms of hyperglycemia or hyperglycemic crisis, a random glucose >/= 200 mg/dl is diagnostic for diabetes. In the absence of unequivocal hyperglycemia, results should be confirmed by repeat testing. The classification and Diagnosis of Diabetes Diabetes Care 202; 46: S19-S40. Current interpretive data was last revised 2022. Calcium 9.6 8.5 - 10.3 mg/dL [facility] Bilirubin, total 3.0(H) 0.1 - 1.2 mg/dL [facility] Protein, pl 7.8 6.5 - 8.5 g/dL [facility] Albumin 5.2(H) 3.5 - 5.0 g/dL [facility] Alk phos 90 40 - 130 Units/L [facility] ALT 41 7 - 55 Units/L [facility] AST 49 10 - 50 Units/L [facility] Blood 09/20/2024 3:24 PM BAGGER AND STOCK HANDLER HELPER 09/20/2024 9:04 PM BAGGER AND STOCK HANDLER HELPER Tal Cotto MD LAB BLOOD ORDERABLES Lien l Result [facility] [address] Department [place] [address] * eGFR (09/16/2024 1:50 PM BAGGER AND STOCK HANDLER HELPER) [facility] eGFR >90 >=60 mL/min/1. 73 m2 Comment: Interpretive Data Reference Interval Normal >/= 90 mL/min/1.73m2 Mildly decreased* 60 - 89 mL/min/1.73m2 Mildly to moderately decreased 45 - 59 mL/min/1.73m2 Moderately to severely decreased 30 - 44 mL/min/1.73m2 Severely decreased 15 - 29 mL/min/1.73m2 Kidney Failure < 15 mL/min/1.73m2 *Relative to young adult level Estimated glomerular filtration rate is determined by the 2020 CKD-EPI equation recommended by the National Kidney Foundation (A Unifying Approach to GFR Estimation: Recommendations of the NKF-ASK Task Force on Reassessing the Inclusion of Race in Diagnosing Kidney Disease, JASN 2020). The CKD-EPI equation should not be used for patients with unstable renal function and has not been validated in children and those over 70. Current interpretive data was last reviewed 2021. Blood 09/16/2024 1:50 PM BAGGER AND STOCK HANDLER HELPER 09/16/2024 9:17 PM BAGGER AND STOCK HANDLER HELPER us Tal Cotto MD LAB BLOOD ORDERABLES Lien alfaro Result [facility] [address] Department [place] [address] * (ABNORMAL) Differential, auto (09/16/2024 1:50 PM BAGGER AND STOCK HANDLER HELPER) Pathologist [facility] Neutrophil abs 9.2(H) 1.5 - 6.5 K/cumm Imm gran abs 0.1 0.0 - 0.1 K/cumm [facility] Lymphocyte abs 3.2 0.8 - 3.3 K/cumm [facility] Monocyte abs 0.7 0.2 - 0.8 K/cumm [facility] Eosinophil abs 0.1 0.0 - 0.5 K/cumm [facility] Basophil abs 0.2(H) 0.0 - 0.1 K/cumm [facility] Neutrophil pct 68.2 % [facility] Comment: Interpretive Data Percent cell count reference ranges are not reported, since discordance with absolute values may lead to misinterpretation of CBC data. Current Interpretive Data was last revised on 2017. Imm gran pct 0.5 % [facility] Comment: Interpretive Data Percent cell count reference ranges are not reported, since discordance with absolute values may lead to misinterpretation of CBC data. Current Interpretive Data was last revised on 2017. Lymphocyte pct 23.9 % [facility] Comment: Interpretive Data Percent cell count reference ranges are not reported, since discordance with absolute values may lead to misinterpretation of CBC data. Current Interpretive Data was last revised on 2017. Monocyte pct 5.1 % [facility] Comment: Interpretive Data Percent cell count reference ranges are not reported, since discordance with absolute values may lead to misinterpretation of CBC data. Current Interpretive Data was last revised on 2017. Eosinophil pct 1.0 % [facility] Comment: Interpretive Data Percent cell count reference ranges are not reported, since discordance with absolute values may lead to misinterpretation of CBC data. Current Interpretive Data was last revised on 2017. Basophil pct 1.3 % [facility] Comment: Interpretive Data Percent cell count reference ranges are not reported, since discordance with absolute values may lead to misinterpretation of CBC data. Current Interpretive Data was last revised on 2017. Blood 09/16/2024 1:50 PM BAGGER AND STOCK HANDLER HELPER 09/16/2024 9:11 PM BAGGER AND STOCK HANDLER HELPER Tal Cotto MD LAB BLOOD ORDERABLES Lien l Result [facility] [address] Department [place] [address] * (ABNORMAL) CBC with auto differential (09/16/2024 1:50 PM BAGGER AND STOCK HANDLER HELPER) WBC 13.5(H) 3.8 - 9.9 K/cumm Hgb 9.9(L) 13.0 - 17.5 g/dL [facility] Hct 31.3(L) 38.9 - 50.3 % [facility] Plt 221 150 - 400 K/cumm [facility] MPV 11.4 9.1 - 12.3 fL [facility] RBC 3.27(L) 4.30 - 5.80 M/cumm [facility] MCV 95.7 81.3 - 96.4 fL [facility] MCH 30.3 27.1 - 33.3 pg [facility] MCHC 31.6(L) 32.3 - 35.7 g/dL [facility] RDW CV 19.6(H) 11.1 - 14.9 % [facility] RDW SD 62.8(H) 35.7 - 48.1 fL [facility] NRBC abs 0.02(H) 0.00 - 0.01 K/cumm [facility] Blood 09/16/2024 1:50 PM BAGGER AND STOCK HANDLER HELPER 09/16/2024 9:11 PM BAGGER AND STOCK HANDLER HELPER Tal Cotto MD LAB BLOOD ORDERABLES Lien alfaro Result [facility] [address] Department [place] [address] * (ABNORMAL) Lipid panel (09/16/2024 1:50 PM BAGGER AND STOCK HANDLER HELPER) Cholesterol 103 30 - 199 mg/dL Comment: Interpretive Data Ages < or = 19 years Acceptable: <170 mg/dL Borderline high: 170-199 mg/dL High: >or= 200 mg/dL Ages > or = 20 years Desirable: <200 mg/dL Borderline high: 200-239 mg/dL High: >or= 240 mg/dL Literature References: 1. Expert Panel on Integrated Guidelines for Cardiovascular Health and Risk Reduction in Children and Adolescents. Pediatrics 2011;128:S213 2. NCEP Expert Panel. Circulation 2004;110:227 Current Interpretive Data was last revised on 2018. Triglycerides 160(H) <=149 mg/dL [facility] Comment: Interpretive Data Ages < or = 9 years Acceptable: <75 mg/dL Borderline high: 75-99 mg/dL High: >or= 100 mg/dL Ages 10 to 20 years Acceptable: <90 mg/dL Borderline high: 90-129 mg/dL High: >or= 130 mg/dL Ages > or = 20 years Desirable: <150 mg/dL Borderline high: 150-199 mg/dL High: 200-499 mg/dL Very high: >or= 499 mg/dL Literature References: 1. Expert Panel on Integrated Guidelines for Cardiovascular Health and Risk Reduction in Children and Adolescents. Pediatrics 2011;128:S213 2. NCEP Expert Panel. Circulation 2004;110:227 Current Interpretive Data was last revised on 2018. HDL 30(L) >=40 mg/dL [facility] Comment: Interpretive Data Ages < or = 19 years Acceptable: >45 mg/dL Borderline low: 40-45 mg/dL Low: <40 mg/dL Ages > or = 20 years Desirable: >or= 60 mg/dL Low: <40 mg/dL Literature References: 1. Expert Panel on Integrated Guidelines for Cardiovascular Health and Risk Reduction in Children and Adolescents. Pediatrics 2011;128:S213 2. NCEP Expert Panel. Circulation 2004;110:227 Current Interpretive Data was last revised on 2018. LDL, calculated 46 <=129 mg/dL [facility] Comment: Interpretive Data Ages < or = 19 years Acceptable: <110 mg/dL Borderline high: 110-129 mg/dL High: >or= 130 mg/dL Ages > or = 20 years Optimal: <100 mg/dL Near optimal: 100-129 mg/dL Borderline high: 130-159 mg/dL High: >160 mg/dL Calculated using the Josafat LDL-C estimating equation. This equation was implemented on 2024. Prior to this date LDL-C was estimated using the Friedewald equation. Literature References: 1. Expert Panel on Integrated Guidelines for Cardiovascular Health and Risk Reduction in Children and Adolescents. Pediatrics 2011;128:S213 2. NCEP Expert Panel. Circulation 2004;110:227 3. Josafat Pearson et al. FRANC Cardiol. 2020 January 12;5(5):540-548. doi: 10.1001/jamacardio.2020.0013 Current Interpretive Data was last revised on 2024. Non-HDL Cholesterol 73 mg/dL [facility] Comment: Interpretive Data Ages < or = 19 years Acceptable: <120 mg/dL Borderline high: 120-144 mg/dL High: >145 mg/dL Ages > or = 20 years When triglycerides are >200 mg/dL, Non-HDL cholesterol is a secondary target of therapy with treatment goals that are 30 mg/dL greater than the LDL cholesterol target. Literature References: 1. Expert Panel on Integrated Guidelines for Cardiovascular Health and Risk Reduction in Children and Adolescents. Pediatrics 2011;128:S213 2. NCEP Expert Panel. Circulation 2004;110:227 Current Interpretive Data was last revised on 2018. Chol/HDL ratio 3 [facility] Blood 09/16/2024 1:50 PM BAGGER AND STOCK HANDLER HELPER 09/16/2024 9:11 PM BAGGER AND STOCK HANDLER HELPER us Tal Cotto MD LAB BLOOD ORDERABLES Lien angelina Result [facility] [address] Department [place] [address] * (ABNORMAL) Comprehensive metabolic panel (09/16/2024 1:50 PM BAGGER AND STOCK HANDLER HELPER) Sodium 138 135 - 145 mmol/L Potassium, pl 4.0 3.3 - 4.9 mmol/L [facility] Chloride 100 97 - 110 mmol/L [facility] CO2 24 22 - 32 mmol/L [facility] Anion gap 14 2 - 15 mmol/L [facility] BUN 7 6 - 25 mg/dL [facility] Creatinine 0.89 0.80 - 1.30 mg/dL [facility] Comment:Icteric sample, test results may be affected. Glucose 84 70 - 199 mg/dL [facility] Comment: Interpretive Data Fasting glucose >/= 126 mg/dl is diagnostic for diabetes. Fasting is defined as no caloric intake for at least 8 hours. Fasting glucose between 100 mg/dl to 125 mg/dl is diagnostic of prediabetes. In a patient with classic symptoms of hyperglycemia or hyperglycemic crisis, a random glucose >/= 200 mg/dl is diagnostic for diabetes. In the absence of unequivocal hyperglycemia, results should be confirmed by repeat testing. The classification and Diagnosis of Diabetes Diabetes Care 2021; 46: S19-S40. Current interpretive data was last revised 2022. Calcium 9.4 8.5 - 10.3 mg/dL [facility] Bilirubin, total 4.0(H) 0.1 - 1.2 mg/dL [facility] Protein, pl 7.6 6.5 - 8.5 g/dL [facility] Albumin 5.0 3.5 - 5.0 g/dL [facility] Alk phos 88 40 - 130 Units/L [facility] ALT 58(H) 7 - 55 Units/L [facility] AST 71(H) 10 - 50 Units/L [facility] Blood 09/16/2024 1:50 PM BAGGER AND STOCK HANDLER HELPER 09/16/2024 9:11 PM BAGGER AND STOCK HANDLER HELPER Tal Cotto MD LAB BLOOD ORDERABLES Lien l Result ELÍAS [address] Department [place] [address] * CT Abdomen Pelvis WO Contrast (08/31/2024 2:30 PM BAGGER AND STOCK HANDLER HELPER) Anatomical Region Laterality Modality Body N/A Computed Tomogra phy Result [facility] Tal Cotto MD IMG CT PROCEDURES Final R esult * (ABNORMAL) POCT urinalysis dipstick (08/10/2024 2:54 PM BAGGER AND STOCK HANDLER HELPER) Color, Urine, POC Juanita Clarity, ur, POC Cloudy(A) Clear Glucose, ur, POC Negative Negative MG/DL Bilirubin, ur, POC Small Negative, Small, Moderate, Large Ketones, ur, POC Negative Negative Specific [place], POC 1.030 1.003 - 1.030 Blood, ur, POC Negative Negative pH, ur, POC 6.0 5.0 - 8.0 Protein, ur, POC 30.(A) Negative Urobilinogen, urine, POC 4.0(A) 0.2 - 1.0 mg/dL Nitrite, ur, POC Negative Negative Leukocytes, ur, POC Negative Negative Lot Number [id number] Urine 08/10/2024 2:54 PM BAGGER AND STOCK HANDLER HELPER Result [facility] Miriam Bassett NP POINT OF CARE TEST ORDERABLES F inal Result * Urine culture Urine, clean voided (08/10/2024 12:00 PM BAGGER AND STOCK HANDLER HELPER) Report Final Report: No growth Comment:Testing performed by : [facility], [address], [place]., [address] Urine, clean voided 08/10/2024 12:00 PM BAGGER AND STOCK HANDLER HELPER 08/10/2024 11:05 PM BAGGER AND STOCK HANDLER HELPER Narrative ELÍAS TREJO - 08/12/2024 8:09 AM BAGGER AND STOCK HANDLER HELPER Testing performed by [facility] Microbiology Laboratory ([phone]) us Miriam Bassett NP LAB MICROBIOLOGY - GENERAL [facility] Final Result ELÍAS [address] Department [place] [address] from Last 3 Months Insurance CHO[place] Care Teams Group Captain Relationship Specialty Start Date End Date Tal Cotto MD [address] [place] [address] PCP - General Family Medicine 03/06/22
--- OUTSIDE RECORDS SUMMARY | 2024-10-19 19:46 | XMS_ITS | Referral Summary ---
Author Organization [facility] [address] lto Address [address] [place] [address] Care Team Providers Care Mid Level Practitioner Name Role Phone Tal Cotto MD Primary Care Provider [phone] Encounters Date Type Department Care Team Description 10/18/2024 2:21 PM EXTRUSION ENGINEER - 10/18/2024 11:59 PM EXTRUSION ENGINEER Hospital Encounter [address] [address] Spherocytosis (CMS/HCC) (HCC); Ulcerative colitis with complication, unspecified location (HCC) Discharge Disposition: Discharge to home or self care 10/18/2024 2:15 PM EXTRUSION ENGINEER Lab [facility] Outpatient Lab at [address] [address] 09/28/2024 Telephone [facility] [address] [phone] Tal Cotto MD Additional Services Or Orders 09/21/2024 Telephone [facility] [address] [address] Tal Cotto MD Test Results 09/20/2024 3:14 PM EXTRUSION ENGINEER - 09/20/2024 11:59 PM EXTRUSION ENGINEER Hospital Encounter [address] [address] Dyspepsia Discharge Disposition: Discharge to home or self care 09/20/2024 3:30 PM EXTRUSION ENGINEER Lab [facility] Outpatient Lab at [address] [phone] 09/20/2024 3:00 PM EXTRUSION ENGINEER Office Visit [facility] Medical [facility] Primary Care at [address] [address] Tal Cotto MD Dyspepsia (Primary Dx); Ulcerative chronic pancolitis without complications (CMS/HCC) (HCC) 09/16/2024 9:15 AM EXTRUSION ENGINEER - 09/16/2024 11:59 PM EXTRUSION ENGINEER Hospital Encounter [address] [address] Annual physical exam Discharge Disposition: Discharge to home or self care 09/16/2024 2:00 PM EXTRUSION ENGINEER Lab [facility] Outpatient Lab at [address] [phone] Ulcerative colitis with complication, unspecified location (HCC) (Primary Dx); RLQ abdominal pain 09/16/2024 Telephone [facility] [address] [phone] Tal Cotto MD 09/01/2024 Telephone [facility] [address] [phone] Tal Cotto MD Test Results 08/31/2024 Orders Only [facility] [address] [address] Tal Cotto MD RLQ abdominal pain 08/31/2024 Telephone [facility] [address] [phone] Monica Melgoza RN Diagnostic Testing (CT ABDOMEN PELVIS WO CONTRAST) 08/31/2024 10:00 AM EXTRUSION ENGINEER Office Visit [facility] [address] [phone] Tal Cotto MD RLQ abdominal pain (Primary Dx); Sperm granuloma of epididymis; Ulcerative colitis with complication, unspecified location (HCC); History of right inguinal hernia 08/30/2024 Nurse Triage [facility] [address] [phone] Tal Cotto MD 08/10/2024 6:27 PM EXTRUSION ENGINEER - 08/10/2024 11:59 PM EXTRUSION ENGINEER Hospital Encounter [facility] [address] [place] [address] Pain in right testicle Discharge Disposition: Discharge to home or self care 08/10/2024 3:45 PM EXTRUSION ENGINEER Office Visit [facility]ient Care at [address] [phone] Miriam Bassett NP Pain in right testicle (Primary Dx) 08/10/2024 Nurse Triage [facility] [address] [phone] Tal Cotto MD from Last 3 Months Allergies Active Allergy Reactions Criticality Noted Date [...] 08/31/2024 Assessment & Plan (08/31/2024 10:44 AM EXTRUSION ENGINEER): No palpable recurrent hernia on exam. Suspicous for possible nerve entrapment and will monitor respnose. Sperm granuloma of epididymis 08/31/2024 Assessment & Plan (08/31/2024 10:44 AM EXTRUSION ENGINEER): Continue f/u with urology. Complete course of doxycycline and will follow response. RLQ abdominal pain 08/31/2024 Assessment & Plan (08/31/2024 10:45 AM EXTRUSION ENGINEER): No evidence of an acute abdomen. No rebound/no periotoneal s/s. Check for anatomic evaluation of the right lower quadrant and will monitor response. Reviwed ER warning s/s. Annual physical exam 07/05/2024 Ulcerative colitis with complication, unspecifie d location 12/15/2023 Assessment & Plan (08/31/2024 10:44 AM EXTRUSION ENGINEER): No blood in the stools, no change in diet, no f/c. Continues on entyvio and willl follow response. Spherocytosis (CMS/HCC) 12/15/2023 Chronic ulcerative pancolitis (CMS/HCC) 06/25/20 20 Polyp of colon 06/25/2020 Immunizations Name Administration Dates Next Due Flucelvax [...] 06/10/2022 Pneumococcal Polysaccharide PPV23 12/05/2010 Tdap 02/11/2015 Social History Tobacco Use Types Packs/Day Years Used Date Smoking Tobacco: Never Smokeless Tobacco: Never Tobacco Cessation:Counseling Given: Not Answered PHQ-2 Answer Date Recorded PHQ-2 Total Score (If total score is 3 or more points, staff should administer the PHQ-9) 0 09/20/2024 Sex and Gender Information Value Date Recorded Sex Assigned at Not on file Legal Sex Male 1:12 AM EXTRUSION ENGINEER Gender Identity Not on file Sexual Orientation Not on file Last Filed Vital Signs Vital Sign Reading Time Taken Comments Blood Pressure 124/70 09/20/2024 2:56 PM EXTRUSION ENGINEER Pulse 63 09/20/2024 2:56 PM EXTRUSION ENGINEER Temperature 36.7 C (98.1 F) 09/20/2024 2:56 PM EXTRUSION ENGINEER Respiratory Rate 18 08/31/2024 10:0 1 AM EXTRUSION ENGINEER Oxygen Saturation 98% 09/20/2024 2:56 PM EXTRUSION ENGINEER Inhaled Oxygen Concentration - - Weight 84.8 kg (186 lb 14.4 oz) 09/20/2024 2:56 PM EXTRUSION ENGINEER Height 182.9 cm (6') 09/20/2024 2:56 PM EXTRUSION ENGINEER Body Mass Index 25.35 09/20/2024 2:56 PM EXTRUSION ENGINEER Plan of Treatment Not on file Procedures Procedure Name Priority Date/Time Associated Diagnosis Comments EGFR Routine 09/20/2024 3:24 PM EXTRUSION ENGINEER Dyspepsia DIFFERENTIAL AUTO Routine 09/20/2024 3:2 4 PM EXTRUSION ENGINEER Dyspepsia LIPASE Routine 09/20/2024 3:24 PM EXTRUSION ENGINEER Dyspepsia AMYLASE Routine 09/20/2024 3:24 PM EXTRUSION ENGINEER Dyspepsia COMPREHENSIVE METABOLIC PANEL Routine 09/20/2024 3:24 PM EXTRUSION ENGINEER Dyspepsia CBC WITH AUTO DIFFERENTIAL Routine 09/20/2024 3:24 PM EXTRUSION ENGINEER Dyspepsia EGFR Routine 09/16/2024 1:50 PM EXTRUSION ENGINEER Annual physical exam DIFFERENTIAL AUTO Routine 09/16/2024 1:5 0 PM EXTRUSION ENGINEER Annual physical exam LIPID PANEL Routine 09/16/2024 1:50 PM EXTRUSION ENGINEER Annual physical exam COMPREHENSIVE METABOLIC PANEL Routine 09/16/2024 1:50 PM EXTRUSION ENGINEER Annual physical exam CBC WITH AUTO DIFFERENTIAL Routine 09/16/2024 1:50 PM EXTRUSION ENGINEER Annual physical exam CT ABDOMEN PELVIS WO CONTRAST Schedule NEETA, Read NEETA (Appt Today, Awaiting Results) 08/31/2024 2:30 PM EXTRUSION ENGINEER RLQ abdominal pain POCT URINALYSIS DIPSTICK Routine 08/10/2024 2:54 PM EXTRUSION ENGINEER Pain in right testicle URINE CULTURE Routine 08/10/2024 12:00 PM EXTRUSION ENGINEER Pain in right testicle from Last 3 Months Results * eGFR (09/20/2024 3:24 PM EXTRUSION ENGINEER) eGFR >90 >=60 mL/min/1. 73 m2 Comment: [...] last reviewed 2021. Blood 09/20/2024 3:24 PM EXTRUSION ENGINEER 09/20/2024 9:41 PM EXTRUSION ENGINEER us Tal Cotto MD LAB BLOOD ORDERABLES Lien l Result ELÍAS [address] Department [place] [address] * (ABNORMAL) Differential, auto (09/20/2024 3:24 PM EXTRUSION ENGINEER) Neutrophil abs 8.9(H) 1.5 - 6.5 K/cumm Imm gran abs 0.0 0.0 - 0.1 K/cumm [facility] Lymphocyte abs 3.1 0.8 - 3.3 K/cumm [facility] Monocyte abs 0.6 0.2 - 0.8 K/cumm [facility] Eosinophil abs 0.2 0.0 - 0.5 K/cumm [facility] Basophil abs 0.2(H) 0.0 - 0.1 K/cumm [facility] Neutrophil pct 68.3 % [facility] Comment: Interpretive Data Percent cell count reference ranges are not reported, since discordance with absolute values may lead to misinterpretation of CBC data. Current Interpretive Data was last revised on 2017. Imm gran pct 0.3 % [facility] Comment: Interpretive Data Percent cell count reference ranges are not reported, since discordance with absolute values may lead to misinterpretation of CBC data. Current Interpretive Data was last revised on 2017. Lymphocyte pct 23.5 % [facility] Comment: Interpretive Data Percent cell count reference ranges are not reported, since discordance with absolute values may lead to misinterpretation of CBC data. Current Interpretive Data was last revised on 2017. Monocyte pct 4.8 % [facility] Comment: Interpretive Data Percent cell count reference ranges are not reported, since discordance with absolute values may lead to misinterpretation of CBC data. Current Interpretive Data was last revised on 2017. Eosinophil pct 1.7 % [facility] Comment: Interpretive Data Percent cell count reference ranges are not reported, since discordance with absolute values may lead to misinterpretation of CBC data. Current Interpretive Data was last revised on 2017. Basophil pct 1.4 % [facility] Comment: Interpretive Data Percent cell count reference ranges are not reported, since discordance with absolute values may lead to misinterpretation of CBC data. Current Interpretive Data was last revised on 2017. Blood 09/20/2024 3:24 PM EXTRUSION ENGINEER 09/20/2024 9:04 PM EXTRUSION ENGINEER Tal Cotto MD LAB BLOOD ORDERABLES Lien l Result ELÍAS TREJO [address] [address] * (ABNORMAL) CBC with auto differential (09/20/2024 3:24 PM EXTRUSION ENGINEER) WBC 13.0(H) 3.8 - 9.9 K/cumm Hgb 10.8(L) 13.0 - 17.5 g/dL [facility] Hct 34.9(L) 38.9 - 50.3 % [facility] Plt 279 150 - 400 K/cumm [facility] MPV 11.4 9.1 - 12.3 fL [facility] RBC 3.59(L) 4.30 - 5.80 M/cumm [facility] MCV 97.2(H) 81.3 - 96.4 fL [facility] MCH 30.1 27.1 - 33.3 pg [facility] MCHC 30.9(L) 32.3 - 35.7 g/dL [facility] RDW CV 20.7(H) 11.1 - 14.9 % [facility] RDW SD 67.1(H) 35.7 - 48.1 fL [facility] NRBC abs 0.03(H) 0.00 - 0.01 K/cumm [facility] Blood 09/20/2024 3:24 PM EXTRUSION ENGINEER 09/20/2024 9:04 PM EXTRUSION ENGINEER Tal Cotto MD LAB BLOOD ORDERABLES Lien l Result ELÍAS TREJO [address] [place] [address] * Lipase (09/20/2024 3:24 PM EXTRUSION ENGINEER) Pathologist [facility] Lipase 35 10 - 99 Units/L Blood 09/20/2024 3:24 PM EXTRUSION ENGINEER 09/20/2024 9:04 PM EXTRUSION ENGINEER Tal Cotto MD LAB BLOOD ORDERABLES Lien l Result ELÍAS TREJO [address] [place] [address] * Amylase (09/20/2024 3:24 PM EXTRUSION ENGINEER) Amylase 54 30 - 99 Units/L Blood 09/20/2024 3:24 PM EXTRUSION ENGINEER 09/20/2024 9:04 PM EXTRUSION ENGINEER Tal Cotto MD LAB BLOOD ORDERABLES Lien l Result Performing Organization Address [facility] Co de Phone Number ELÍAS [address] [address] * (ABNORMAL) Comprehensive metabolic panel (09/20/2024 3:24 PM EXTRUSION ENGINEER) Sodium 140 135 - 145 mmol/L Potassium, pl 4.2 3.3 - 4.9 mmol/L [facility] Chloride 102 97 - 110 mmol/L [facility] CO2 24 22 - 32 mmol/L [facility] Anion gap 14 2 - 15 mmol/L [facility] BUN 12 6 - 25 mg/dL [facility] Creatinine 0.86 0.80 - 1.30 mg/dL [facility] Comment:Icteric sample, test results may be affected. Glucose 84 70 - 199 mg/dL [facility] Comment: Interpretive Data Fasting glucose >/= 126 [...] Calcium 9.6 8.5 - 10.3 mg/dL [facility] Bilirubin, total 3.0(H) 0.1 - 1.2 mg/dL [facility] Protein, pl 7.8 6.5 - 8.5 g/dL [facility] Albumin 5.2(H) 3.5 - 5.0 g/dL [facility] Alk phos 90 40 - 130 Units/L [facility] ALT 41 7 - 55 Units/L [facility] AST 49 10 - 50 Units/L [facility] Blood 09/20/2024 3:24 PM EXTRUSION ENGINEER 09/20/2024 9:04 PM EXTRUSION ENGINEER Tal Cotto MD LAB BLOOD ORDERABLES Lien l Result Performing Organization Address City/[facility]/ZIP Co de Phone Number ELÍAS TREJO [address] [place] [address] * eGFR (09/16/2024 1:50 PM EXTRUSION ENGINEER) eGFR >90 >=60 mL/min/1. 73 m2 Comment: [...] of Race in Diagnosing Kidney Disease, JASN 1). The CKD-EPI equation should not be used for patients with unstable renal function and has not been validated in children and those over 70. Current interpretive data was last reviewed 2021. Blood 09/16/2024 1:50 PM EXTRUSION ENGINEER 09/16/2024 9:17 PM EXTRUSION ENGINEER Tal Cotto MD LAB BLOOD ORDERABLES Lien l Result Performing Organization Address City/[facility]/ZIP Co de Phone Number ELÍAS TREJO [address] Department [employer] [place], [place] [id number] * (ABNORMAL) Differential, auto (09/16/2024 1:50 PM EXTRUSION ENGINEER) Neutrophil abs 9.2(H) 1.5 - 6.5 K/cumm Imm gran abs 0.1 0.0 - 0.1 K/cumm [facility] Lymphocyte abs 3.2 0.8 - 3.3 K/cumm [facility] Monocyte abs 0.7 0.2 - 0.8 K/cumm [facility] Eosinophil abs 0.1 0.0 - 0.5 K/cumm [facility] Basophil abs 0.2(H) 0.0 - 0.1 K/cumm [facility] Neutrophil pct 68.2 % [facility] Comment: Interpretive Data Percent cell count reference ranges are not reported, since discordance with absolute values may lead to misinterpretation of CBC data. Current Interpretive Data was last revised on 2017. Imm gran pct 0.5 % [facility] Comment: Interpretive Data Percent cell count reference ranges are not reported, since discordance with absolute values may lead to misinterpretation of CBC data. Current Interpretive Data was last revised on 2017. Lymphocyte pct 23.9 % [facility] Comment: Interpretive Data Percent cell count reference ranges are not reported, since discordance with absolute values may lead to misinterpretation of CBC data. Current Interpretive Data was last revised on 2017. Monocyte pct 5.1 % [facility] Comment: Interpretive Data Percent cell count reference ranges are not reported, since discordance with absolute values may lead to misinterpretation of CBC data. Current Interpretive Data was last revised on 2017. Eosinophil pct 1.0 % [facility] Comment: Interpretive Data Percent cell count reference ranges are not reported, since discordance with absolute values may lead to misinterpretation of CBC data. Current Interpretive Data was last revised on 2017. Basophil pct 1.3 % [facility] Comment: Interpretive Data Percent cell count reference ranges are not reported, since discordance with absolute values may lead to misinterpretation of CBC data. Current Interpretive Data was last revised on 2017. Blood 09/16/2024 1:50 PM EXTRUSION ENGINEER 09/16/2024 9:11 PM EXTRUSION ENGINEER Tal Cotto MD LAB BLOOD ORDERABLES Lien l Result ELÍAS TREJO [address] [address] * (ABNORMAL) CBC with auto differential (09/16/2024 1:50 PM EXTRUSION ENGINEER) WBC 13.5(H) 3.8 - 9.9 K/cumm Hgb 9.9(L) 13.0 - 17.5 g/dL [facility] Hct 31.3(L) 38.9 - 50.3 % [facility] Plt 221 150 - 400 K/cumm [facility] MPV 11.4 9.1 - 12.3 fL [facility] RBC 3.27(L) 4.30 - 5.80 M/cumm [facility] MCV 95.7 81.3 - 96.4 fL [facility] MCH 30.3 27.1 - 33.3 pg [facility] MCHC 31.6(L) 32.3 - 35.7 g/dL [facility] RDW CV 19.6(H) 11.1 - 14.9 % [facility] RDW SD 62.8(H) 35.7 - 48.1 fL [facility] NRBC abs 0.02(H) 0.00 - 0.01 K/cumm [facility] Blood 09/16/2024 1:50 PM EXTRUSION ENGINEER 09/16/2024 9:11 PM EXTRUSION ENGINEER Tal Cotto MD LAB BLOOD ORDERABLES Lien l Result ELÍAS TREJO [address] [place] [address] * (ABNORMAL) Lipid panel (09/16/2024 1:50 PM EXTRUSION ENGINEER) Pathologist [facility] Cholesterol 103 30 - 199 mg/dL Comment: [...] revised on 2018. Triglycerides 160(H) <=149 mg/dL ELÍAS Comment: Interpretive Data Ages < or = [...] on 2018. HDL 30(L) >=40 mg/dL ELÍAS Comment: Interpretive Data Ages < or = [...] 2018. LDL, calculated 46 <=129 mg/dL ELÍAS Comment: Interpretive Data Ages < or = 19 years Acceptable: <110 mg/dL Borderline high: 110-129 mg/dL High: >or= 130 mg/dL Ages > or = 20 years Optimal: <100 mg/dL Near optimal: 100-129 mg/dL Borderline high: 130-159 mg/dL High: >160 mg/dL Calculated using the Maurice LDL-C estimating equation. This equation was implemented on 2024. Prior to this date LDL-C was estimated using the Friedewald equation. Literature References: 1. Expert Panel on Integrated Guidelines for Cardiovascular Health and Risk Reduction in Children and Adolescents. Pediatrics 2011;128:S213 2. NCEP Expert Panel. Circulation 2004;110:227 3. Josafat M et al. FRANC Cardiol. 2020 January 12;5(5):540-548. doi: 10.1001/jamacardio.2020.0013 Current Interpretive Data was last revised on 2024. Non-HDL Cholesterol 73 mg/dL [facility] Comment: Interpretive Data Ages < or = [...] 3 [facility] Blood 09/16/2024 1:50 PM EXTRUSION ENGINEER 09/16/2024 9:11 PM EXTRUSION ENGINEER Tal Cotto MD LAB BLOOD ORDERABLES Lien alfaro Result [facility] [address] Department [place] [address] * (ABNORMAL) Comprehensive metabolic panel (09/16/2024 1:50 PM EXTRUSION ENGINEER) Pathologist [facility] Sodium 138 135 - 145 mmol/L Potassium, pl 4.0 3.3 - 4.9 mmol/L [facility] Chloride 100 97 - 110 mmol/L [facility] CO2 24 22 - 32 mmol/L [facility] Anion gap 14 2 - 15 mmol/L [facility] BUN 7 6 - 25 mg/dL [facility] Creatinine 0.89 0.80 - 1.30 mg/dL [facility] Comment:Icteric sample, test results may be affected. Glucose 84 70 - 199 mg/dL [facility] Comment: Interpretive Data Fasting glucose >/= 126 [...] AST 71(H) 10 - 50 Units/L [facility] Blood 09/16/2024 1:50 PM EXTRUSION ENGINEER 09/16/2024 9:11 PM EXTRUSION ENGINEER Tal Cotto MD LAB BLOOD ORDERABLES Lien l Result ELÍAS [address] Department [place] [address] * CT Abdomen Pelvis WO Contrast (08/31/2024 2:30 PM EXTRUSION ENGINEER) Anatomical Region Laterality Modality Body N/A Computed Tomogra phy Tal Cotto MD IMG CT PROCEDURES Final R esult * (ABNORMAL) POCT urinalysis dipstick (08/10/2024 2:54 PM EXTRUSION ENGINEER) Color, Urine, POC Juanita Clarity, ur, POC Cloudy(A) Clear Glucose, ur, POC Negative Negative MG/DL Bilirubin, ur, POC Small Negative, Small, Moderate, Large Ketones, ur, POC Negative Negative Specific [place], POC 1.030 1.003 - 1.030 Blood, ur, POC Negative Negative pH, ur, POC 6.0 5.0 - 8.0 Protein, ur, POC 30.(A) Negative Urobilinogen, urine, POC 4.0(A) 0.2 - 1.0 mg/dL Nitrite, ur, POC Negative Negative Leukocytes, ur, POC Negative Negative Lot Number [id number] Urine 08/10/2024 2:54 PM EXTRUSION ENGINEER Miriam Bassett NP POINT OF CARE TEST ORDERABLES F inal Result * Urine culture Urine, clean voided (08/10/2024 12:00 PM EXTRUSION ENGINEER) Report Final Report: No growth Comment:Testing performed by : [facility], [address] [place]., [address] Urine, clean voided 08/10/2024 12:00 PM EXTRUSION ENGINEER 08/10/2024 11:05 PM EXTRUSION ENGINEER Narrative ELÍAS - 08/12/2024 8:09 AM EXTRUSION ENGINEER Testing performed by [facility] Microbiology Laboratory ([phone]) Miriam Bassett NP LAB MICROBIOLOGY - GENERAL [facility] Final Result ELÍAS [address] Department [place] [address] from Last 3 Months Insurance [place] Care Teams Mid Level Practitioner Relationship Specialty Start Date [place] [address] PCP - General Family Medicine 03/06/22
--- OUTSIDE RECORDS SUMMARY | 2024-10-19 19:46 | XMS_ITS | Encounter Summary ---
Author Organization [facility] Healthcare Address [address] [place] [address] Care Team Providers Care Foreign Language Interpreter Name Role Phone Tal Cotto MD Primary Care Provider [phone] Reason for Referral * Diagnostic Lab (Routine) - Pending Review Specialty Diagnoses / Procedures Referred By Contac t Referred To Contact Lab Diagnoses Spherocytosis (CMS/HCC) (HCC) Ulcerative colitis with complication, unspecified location (HCC) Procedures calprotectin fecal - Miscellaneous Test calprotectin fecal - [place] [address] [place] [address] Phone: tel: fax: Referral ID Status Reason Start Date Expiration Date V isits Requested Visits Authorized [id number] Pending Review 12/15/2023 01/13/2025 1 1 Encounter Details Date Type Department Care Team (Late st Contact Info) Description 12/15/2023 9:15 AM CDT Lab [facility] Outpatient Lab at [address] [id number] Spherocytosis (CMS/HCC) (HCC) (Primary Dx); Ulcerative colitis with complication, unspecified location (HCC) Social History Tobacco Use Types Packs/Day Years Used Date Smoking Tobacco: Never Smokeless Tobacco: Never PHQ-2 Answer Date Recorded PHQ-2 Total Score (If total score is 3 or more points, staff should administer the PHQ-9) 0 09/20/2024 Sex and Gender Information Value Date Recorded Sex Assigned at Not on file 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 Gender Identity Not on file Sexual Orientation Not on file documented as of this encounter Miscellaneous Notes * Addendum Note - Vanna Silva - 12/15/2023 9:15 AM CDTAddended by: VANNA SILVA on: 12/15/2023 09:45 AM Modules accepted: Orders * Addendum Note - Vanna Silva - 12/15/2023 9:15 AM CDTAddended by: VANNA SILVA on: 12/15/2023 09:49 AM Modules accepted: Orders * Addendum Note - Vanna Silva - 12/15/2023 9:15 AM CDTAddended by: VANNA SILVA on: 10/18/2024 02:21 PM Modules accepted: 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 encounter Plan of Treatment Pending Results Name Type Priority Associated Diagnoses Date /Time calprotectin fecal - Miscellaneous Lab Test Lab Routine Spherocytosis (CMS/HCC) (HCC) Ulcerative colitis with complication, unspecified location (HCC) 10/18/2024 2:21 PM RECYCLING CENTER OPERATOR Scheduled Orders Name Type Priority Associated Diagnoses Orde r Schedule calprotectin fecal - Miscellaneous Test Lab Routine Spherocytosis (CMS/HCC) (HCC) Ulcerative colitis with complication, unspecified location (HCC) Expected: 12/18/2023, Expires: 12/14/2024 documented as of this encounter Results * (ABNORMAL) Hepatic function panel (12/15/2023 4:45 PM CDT) Bilirubin, total 3.1(H) 0.1 - 1.2 mg/dL Bilirubin, direct <0.2 0.1 - 0.3 mg/dL [facility] Comment:Hemolysis present. R esults may be affected. Protein, pl 7.3 6.5 - 8.5 g/dL [facility] Albumin 4.9 3.5 - 5.0 g/dL [facility] Alk phos 82 40 - 130 Units/L [facility] ALT 48 7 - 55 Units/L [facility] AST 56(H) 10 - 50 Units/L [facility] Blood (Blood, Venous) 12/15/2023 4:45 PM CDT 12/15/2023 4:45 PM CDT Rohit Starks MD LAB BLOOD ORDERABLES Final Result Performing Organization Address City/[facility] Co de Phone Number EL[address]AS [address] [employer] [place], [place] [id number] * Hepatitis B surface antibody (immune status) Blood Blood, Venous (12/15/2023 9:10 AM CDT) HBsAb (immune status) Nonreactive Comment: Interpretive Data Nonreactive: This result is consistent with a lack of immunity to Hepatitis B Virus when used in the setting of routine screening. Equivocal: The immune status of the individual should be further assessed, if appropriate, after consideration of clinical status, risk factors, and additional diagnostic information. Reactive: This result is consistent with immunity to Hepatitis B Virus when used in the setting of routine screening. Current interpretive data was last revised on 19. Blood (Blood, Venous) 12/15/2023 9:10 AM CDT 12/15/2023 3:55 PM CDT Narrative [facility] - 12/15/2023 5:45 PM CDT Fax results to rohit burton [phone] Rohit Starks MD LAB MICROBIOLOGY - GE NERAL ORDERABLES Final Result Performing Organization Address City/[facility]/ZIP Co de Phone Number EL[address]AS [address] [place] [employer] [place] [address] * Hepatitis B Surface Antigen Blood Blood, Venous (12/15/2023 9:10 AM CDT) HepBsAg Nonreactive Nonreactive Blood (Blood, Venous) 12/15/2023 9:10 AM CDT 12/15/2023 3:55 PM CDT Kathie MCKINLEY - 12/15/2023 5:45 PM CDT Fax results to rohit burton [phone] Rohit Starks MD LAB MICROBIOLOGY - GE NERAL ORDERABLES Final Result Performing Organization Address [facility] Co de Phone Number ELÍAS TREJO [address] [place] [place] [address] * Hepatitis B core antibody, total Blood Blood, Venous (12/15/2023 9:10 AM CDT) [facility] Hep B core IgG/IgM Nonreactive Nonreactive Comment:Testing performed by : [facility], [address] [place] [address]., [id number] Blood (Blood, Venous) 12/15/2023 9:10 AM CDT 12/16/2023 9:46 AM CDT Kathie MCKINLEY [facility] 12/16/2023 10:26 AM CDT Fax results to rohit burton [phone] Rohit Starks MD LAB MICROBIOLOGY - NERAL ORDERABLES Final Result Performing Organization Address [facility] de Phone Number ELÍAS TRE[address] [employer] [place] [address] * TB test, quantiferon gold (12/15/2023 9:10 AM CDT) [facility] Quantiferon TB Gold Negative Negative [facility] Comment: No interferon-gamma response to M. tuberculosis antigens was detected. Latent infection with M. tuberculosis is unlikely. A single negative result does not exclude infection with M. tuberculosis. In patients at high risk for M.tuberculosis infection, a second test should be considered in accordance with the 2017 ATS/IDSA/CDC Clinical Practice Guidelines for Diagnosis of Tuberculosis in Adults and Children [Enrique CASTRO et. al. Clin. Infect. Dis. 2017;64(2):111-115]. The reference range for the 'TB1 Ag minus Nil Result' and 'TB2 Ag minus Nil Result' is an Interferon-gamma level <0.35 IU/mL. TB-Nil 0.01 IUnits/mL [facility] TB2-Nil 0.00 IUnits/mL [facility] Mitogen-Nil 10.00 IUnits/mL [facility] NIL 0.00 IUnits/mL [facility] Comment: Test Performed by: [facility] [address] [place] [address] Service Center Appraiser: Clay Charles M.D. Ph.D.; CLIA# [id number] Blood 12/15/2023 9:10 AM CDT 12/15/2023 3:55 PM CDT Narrative [facility] - 12/17/2023 2:24 PM CDT Fax results to rohit burton [phone] Rohit Starks MD LAB BLOOD ORDERABLES Final Result Performing Organization Address City/[facility] Co de Phone Number ELÍAS TREJO [address] [employer] [place] [address] [facility] * CRP (acute phase) (12/15/2023 9:10 AM CDT) CRP <3.0 <=10.0 mg/L Blood (Blood, Venous) 12/15/2023 9:10 AM CDT 12/15/2023 3:55 PM CDT Narrative [facility] TRE[facility] - 12/15/2023 5:35 PM CDT Fax results to rohit burton [phone] Rohit Starks MD LAB BLOOD ORDERABLES Final Result [address] [facility] [employer] [place] [address] * Erythrocyte sedimentation rate (12/15/2023 9:10 AM CDT) Erythrocyte sedimentation rate 4 1 - 15 mm/hr Blood (Blood, Venous) 12/15/2023 9:10 AM CDT 12/15/2023 3:55 PM CDT Narrative [facility] - 12/15/2023 7:40 PM CDT Fax results to rohit burton [phone] us Rohit Starks MD LAB BLOOD ORDERABLES Final Result Performing Organization Address City/[facility]/ZIP Co de Phone Number [facility] [address] [facility] [place] [address] * (ABNORMAL) Basic metabolic panel (12/15/2023 9:10 AM CDT) Sodium 140 135 - 145 mmol/L Potassium, pl 4.2 3.3 - 4.9 mmol/L [facility] Chloride 102 97 - 110 mmol/L [facility] CO2 24 22 - 32 mmol/L [facility] Anion gap 14 2 - 15 mmol/L [facility] BUN 13 6 - 25 mg/dL [facility] Creatinine 0.77(L) 0.80 - 1.30 mg/dL [facility] Comment:Icteric sample, test results may be affected. Glucose 78 70 - 199 mg/dL [facility] Comment: Interpretive Data Fasting glucose >/= 126 [...] interpretive data was last revised 2022. Calcium 9.7 8.5 - 10.3 mg/dL [facility] Blood 12/15/2023 9:10 AM CDT 12/15/2023 3:55 PM CDT Narrative [facility] - 12/15/2023 5:35 PM CDT Fax results to rohit burton [phone] Rohit Starks MD LAB BLOOD ORDERABLES Final Result [address] [place] [address] * (ABNORMAL) CBC with auto differential (12/15/2023 9:10 AM CDT) WBC 10.6(H) 3.8 - 9.9 K/cumm Hgb 12.1(L) 13.0 - 17.5 g/dL [facility] Hct 37.9(L) 38.9 - 50.3 % [facility] Plt 172 150 - 400 K/cumm [facility] MPV 12.0 9.1 - 12.3 fL [facility] RBC 3.84(L) 4.30 - 5.80 M/cumm [facility] MCV 98.7(H) 81.3 - 96.4 fL [facility] MCH 31.5 27.1 - 33.3 pg [facility] MCHC 31.9(L) 32.3 - 35.7 g/dL [facility] CH RDW CV 19.6(H) 11.1 - 14.9 % [facility] RDW SD 65.6(H) 35.7 - 48.1 fL [facility] NRBC abs 0.02(H) 0.00 - 0.01 K/cumm [facility] CH Blood 12/15/2023 9:10 AM CDT 12/15/2023 3:55 PM CDT Narrative [facility] - 12/15/2023 4:59 PM CDT Fax results to rohit burton [phone] Rohit Starks MD LAB BLOOD ORDERABLES Final Result [address] [place] [address] * (ABNORMAL) Ferritin (12/15/2023 9:10 AM CDT) Ferritin 960(H) 30 - 400 ng/mL Blood (Blood, Venous) 12/15/2023 9:10 AM CDT 12/15/2023 3:55 PM CDT Narrative [facility] - 12/15/2023 5:35 PM CDT Fax results to rohit burton [phone] us Rohit Starks MD LAB BLOOD ORDERABLES Final Result Performing Organization Address [facility] Co de Phone Number ELÍAS TREJO [address] [employer] [place], [place] [id number] * (ABNORMAL) Iron profile w/ IBC (12/15/2023 9:10 AM CDT) Iron 202(H) 50 - 150 mcg/dl TIBC 272 250 - 400 mcg/dL [facility] Transferrin saturation 74(H) 20 - 50 % [facility] Blood 12/15/2023 9:10 AM CDT 12/15/2023 3:55 PM CDT Narrative [facility] - 12/15/2023 8:28 PM CDT Fax results to rohit burton [phone] us Rohit Starks MD LAB BLOOD ORDERABLES Final Result Performing Organization Address [facility] de Phone Number EL[address] [employer] [place], [place] [phone] documented in this encounter Visit Diagnoses Diagnosis Spherocytosis (CMS/HCC) (HCC)- Primary Hereditary spherocytosis Ulcerative colitis with complication, unspecified location (HCC) Lipid screening Screening for lipoid disorders Spherocytosis (CMS/HCC) (HCC) Hereditary spherocytosis Ulcerative colitis with complication, unspecified location (HCC) documented in this encounter Care Teams Foreign Language Interpreter Relationship Specialty Start Date [place] [address] PCP - General Family Medicine 03/06/22 documented as of this encounter
[2024-10-19 19:47] VITALS: BP 133/79; PULSE 82; RESP 20; TEMP 36.7; O2SAT 100
[2024-10-19 23:02] LABS: Basophils Absolute Auto 0.1 K/mm3 (0.0-0.1); Basophils Percent Auto 0.9 % (0.2-1.2); Eosinophils Absolute Auto 0.2 K/mm3 (0-0.3); Eosinophils Percent Auto 1.2 % (0-4.4); Hematocrit 35.9 % (42.0-52.0); Hemoglobin 12.1 g/dL (14.0-18.0); Immature Granulocyte Absolute 0.07 K/mm3 (0.00-0.031); Immature Granulocyte Percent A 0.5 % (0-0.5); Lymphocytes Absolute Auto 3.34 K/mm3 (0.9-3.2); Lymphocytes Percent Auto 24.1 % (18.3-44.2); Mean Corpuscular HGB Conc 33.7 g/dl (32-36); Mean Corpuscular Volume 88.9 fl (80-100); Mean Platelet Volume 10.3 fl (7.4-10.4); Monocytes Absolute Auto 0.6 K/mm3 (0.1-0.6); Monocytes Percent Auto 4.3 % (2.6-8.5); Neutrophils Absolute Auto 9.6 K/mm3 (1.3-6.7); Platelet Count Result 255 k/mm3 (150-375); Red Blood Count 4.04 M/mm3 (4.6-6.20); Red Cell Distribution Width 18.1 % (11.5-14.5); White Blood Count 13.9 K/mm3 (4.5-10.0)
[2024-10-19 23:15] LABS: Alanine Aminotransferase 27 U/L (6-50); Alkaline Phosphatase 81 U/L (38-126); Anion Gap 12 mmol/L (4-12); Aspartate Amino Transferase 42 U/L (17-59); Bilirubin,Total 2.2 mg/dL (0.2-1.3); Blood Urea Nitrogen 16 mg/dL (9-20); Calcium 9.6 mg/dL (8.4-10.2); Carbon Dioxide 28 mmol/L (22-30); Chloride 102 mmol/L (98-107); Estimated CRCL calculation 119 ml/min; Estimated Glomerular Filt Rate > 60; Glucose 90 mg/dL (65-110); Lipase 135 U/L (23-300); Potassium 3.9 mmol/L (3.4-5.0); Sodium 142 mmol/L (137-145)
[2024-10-19 23:28] LABS: Add Urine Microscopic? NO; Appearance Urine Clear (Clear); Bilirubin Urine Negative (Negative); Blood Urine Negative (Negative); Color Urine Yellow (Yellow); Glucose Urine UA Negative (Negative); Ketones Urine Negative (Negative); Leukocyte Esterase Ur Negative LEU/UL (Negative); Nitrate Urine Negative (Negative); Protein Urine Negative (Negative); Specific Grav Ur 1.021 (1.001-1.035); pH Urine 6.5 (5.0-9.0)
--- NOTE | 2024-10-20 01:59 | ED.ABDPAIN ---
HPI - Abdominal Pain General Chief Complaint: Abdominal Pain <MAMADOU Hollis Last Filed: 10/20/24 02:31> Stated Complaint: R flank pain down to groin area <MAMADOU Hollis Last Filed: 10/20/24 02:31> Time Seen by Provider: 10/20/24 01:52 <MAMADOU Hollis Last Filed: 10/20/24 02:31> Source: patient <MAMADOU Hollis Last Filed: 10/20/24 02:31> Mode of arrival: ambulatory <MAMADOU Hollis Last Filed: 10/20/24 02:31> Limitations: no limitations <MAMADOU Hollis Last Filed: 10/20/24 02:31> History of Present Illness HPI narrative: This is a 39-year-old male who presents to the ED for chief complaint of right-sided flank and abdominal pain over the course of the past 24 hours. Patient states that pain has come and gone and waves. He states that the pain started in the groin/right testicle. Since then he has developed right lower quadrant and right flank pain. <MAMADOU Hollis Last Filed: 10/20/24 02:31> Related Data Home Medications: Home Medications ?Medication ?Instructions ?Recorded ?Confirmed ?Last Taken ?Type ferrous sulfate 325 mg (65 mg 325 mg PO DAILY 04/01/22 05/23/22 Unknown History iron) tablet (Iron (ferrous sulfate)) multivitamin 1 tablet PO DAILY 04/01/22 05/23/22 Unknown History <MAMADOU Hollis Last Filed: 10/20/24 02:31> Allergies/Adverse Reactions: Allergies Allergy/AdvReac Type Severity Reaction Status Date / Time Sulfa (Sulfonamide Allergy Unknown Other Verified 10/19/24 19:45 Antibiotics) sulfasalazine Allergy Unknown Other Verified 10/19/24 19:45 <MAMADOU Hollis Last Filed: 10/20/24 02:31> Review of Systems Review of Systems: All systems as dictated in HPI <MAMADOU Hollis Last Filed: 10/20/24 02:31> [facility] Past Medical History Medical History: Medical History (Updated 10/20/24 @ 07:16 by Jemima Browne MD) Hereditary spherocytosis BMI 27.0-27.9,adult <Sergio Vargas PA-C - Last Filed: 10/20/24 02:31> Surgical History Surgical History: Surgical History H/O umbilical hernia repair Open Umbilical hernia repair on 04/09/22 H/O right inguinal hernia repair LAP RIH repair w/ mesh, [facility] Drew Assisted on 03/2722 H/O knee surgery 1999 <MAMADOU Hollis Last Filed: 10/20/24 02:31> Family History Family History: Family History Father Family history of blood dyscrasia Patient's father is in good health Sibling Family history of blood dyscrasia Patient's sister is in good health Mother Patient's mother is in good health Family history of allergic disorder Other Family history of arthritis Family history of gout Hypertension <Sergio Vargas PA-C - Last Filed: 10/20/24 02:31> Social History Social History: Social History Smoking status: Never smoker Alcohol intake: current Drinks per week: 3 Substance use: never Substance use type: does not use Living arrangements: with family Occupation/Education: occupation Additional occupation/education comments: Insurance Rep Gender identity (if verbalized by the patient): Male Sexual Orientation (if Verbalized by the Patient): Straight or Heterosexual Spiritual care concerns: No <MAMADOU Hollis Last Filed: 10/20/24 02:31> Exam Narrative: GENERAL: Well-appearing, well-nourished, and in no acute distress. HEAD: Normocephalic, atraumatic. EYES: PERRLA and EOMI. ENT: Nares clear, no rhinorrhea or epistaxis. Mucous membranes moist. Oropharynx without tonsillar hypertrophy exudate or other lesions. NECK: Supple. No adenopathy or masses. CHEST: No respiratory distress. Clear to auscultation. No wheezes rales or rhonchi HEART: Regular rate and rhythm. No murmur heard. Normal peripheral pulses. ABDOMEN: Soft, grossly nontender, nondistended, normal active bowel sounds. Negative flank tenderness bilaterally. No masses palpated. MSK: Normal range of motion. No edema. SKIN: Warm, dry, no rash. NEURO: Alert and oriented x4. No focal deficits. PSYCH: Normal mood and affect. : Mild testicular swelling on the right. Mildly tender on the right as well. No testicular swelling or tenderness on the left. No masses palpated. <Sergio Vargas PA-C - Last Filed: 10/20/24 02:31> Course Course Emergency Course: ANGEL signed patient out to me Pending interpretation of CT study and ultrasound. Patient has a history of ulcerative colitis. Assessed at 04:40. He states he has been stable for several years on Entyvio infusions every 8 weeks in his last 1 was a few weeks ago. He is not supposed to see his fiscal services director to his through [facility] for another 6 months given that he recently underwent a colonoscopy. He states previously when he had UC flares he was on steroids but that was a very long time ago given that he had been transition from 1 treatment to Imuran (DC'd due to insurance issues). we had previously had flares he sometimes required lengthy hospitalizations but had been doing so well. he also states that he recently saw urology here and had a varicocele and another issues. Requesting more pain medicine ; this is ordered. No pyuria but US c/f epididymitis. GCChlamydia ordered. Although there are inflammatory changes on CT scan. Patient's CRP is normal and his ESR is essentially normal, only mildly outside the upper limit. I did discuss this patient with on-call fiscal services director Dr Wilson who does NOT believe based on his symptoms ( for which diarrhea /loose stool is absent) and labs that this represents a UC flare; possibly referred pain from issues. GCChlamydia negative. Patient given first dose of antibiotic in the ED and rest of course Rx for total 10 day course. Prescribed acetaminophen for pain and given a dose in the ED. Offered 1 time dose of IM ketorolac as well but will otherwise defer prescribing NSAIDS given IBD. Discussed patient's work up / findings with him. Recommended follow up and calling his urologist (he had previously seen Dr Quarles) to see when they would like him to follow up. Gave ED return precautions which he verified understanding. Patient also requesting something stronger for pain. Short course of opiate medications electronically prescribed. <Jemima Browne MD - Last Filed: 10/20/24 14:58> Vital Signs Vital signs: Vital Signs Temperature 98.0 F 10/19/24 19:47 Pulse Rate 82 10/19/24 19:47 Respiratory Rate 20 10/19/24 19:47 Blood Pressure 133/79 10/19/24 19:47 Pulse Oximetry 100 10/19/24 19:47 Oxygen Delivery Room Air 10/19/24 19:47 Temperature 98.0 F 10/19/24 19:47 Pulse Rate 67 10/20/24 07:20 Respiratory Rate 16 10/20/24 07:20 Blood Pressure 134/68 10/20/24 07:20 Pulse Oximetry 100 10/20/24 07:20 Oxygen Delivery Room Air 10/19/24 19:47 <Sergio Vargas PA-C - Last Filed: 10/20/24 02:31> Vital Signs Temperature 98.0 F 10/19/24 19:47 Pulse Rate 82 10/19/24 19:47 Respiratory Rate 20 10/19/24 19:47 Blood Pressure 133/79 10/19/24 19:47 Pulse Oximetry 100 10/19/24 19:47 Oxygen Delivery Room Air 10/19/24 19:47 Temperature 98.0 F 10/19/24 19:47 Pulse Rate 67 10/20/24 07:20 Respiratory Rate 16 10/20/24 07:20 Blood Pressure 134/68 10/20/24 07:20 Pulse Oximetry 100 10/20/24 07:20 Oxygen Delivery Room Air 10/19/24 19:47 <Jemima Browne MD - Last Filed: 10/20/24 14:58> MDM - Abdominal Pain MDM Narrative Medical decision making narrative: This is a 39-year-old male presents to the ED for chief complaint of right flank, right lower abdominal pain and right testicular pain. Vitals are normal. Exam remarkable for the above. Lab work coming back remarkable for a white count of 13.9 on the CBC. CMP unremarkable overall other than slightly elevated bilirubin. Patient states that he has had both high white count and I bilirubin in the past with his history of blood disorders/spherocytosis. He was given Dilaudid for pain control. Patient will be handed off to attending Dr. Browne at the time of shift change pending CT imaging to rule out intra-abdominal infection or ureterolithiasis and ultrasound imaging to rule out torsion. <Sergio Vargas PA-C - Last Filed: 10/20/24 02:31> Lab Data Result diagrams: 10/19/24 22:54 10/19/24 22:54 <Sergio Vargas PA-C - Last Filed: 10/20/24 02:31> Labs: Lab Results 10/19/24 10/19/24 10/20/24 Range/Units 22:54 23:16 04:57 WBC 13.9 H (4.5-10.0) K/mm3 RBC 4.04 L (4.6-6.20) M/mm3 Hgb 12.1 L (14.0-18.0) g/dL Hct 35.9 L (42.0-52.0) % MCV 88.9 (80-100) fl MCH 30.0 (26-34) pg MCHC 33.7 (32-36) g/dl RDW 18.1 H (11.5-14.5) % Plt Count 255 (150-375) k/mm3 MPV 10.3 (7.4-10.4) fl Immature Gran % (Auto) 0.5 (0-0.5) % Neut % (Auto) 69.0 (45.5-73.1) % Lymph % (Auto) 24.1 (18.3-44.2) % [place] % (Auto) 4.3 (2.6-8.5) % Eos % (Auto) 1.2 (0-4.4) % Baso % (Auto) 0.9 (0.2-1.2) % Lymph # (Auto) 3.34 H (0.9-3.2) K/mm3 [place] # (Auto) 0.6 (0.1-0.6) K/mm3 Eos # (Auto) 0.2 (0-0.3) K/mm3 Baso # (Auto) 0.1 (0.0-0.1) K/mm3 Abs Immat Gran (auto) 0.07 H (0.00-0.031) K/mm3 Absolute Neuts (auto) 9.6 H (1.3-6.7) K/mm3 Absolute Nucleated RBC 0.000 (0.0-0.012) K/mm3 Nucleated RBC % 0.0 (0.0-0.2) % ESR 21 H (0-20) mm/hr Sodium 142 (137-145) mmol/L Potassium 3.9 (3.4-5.0) mmol/L Chloride 102 (98-107) mmol/L Carbon Dioxide 28 (22-30) mmol/L Anion Gap 12 (4-12) mmol/L BUN 16 (9-20) mg/dL Creatinine 0.78 (0.7-1.3) mg/dL Estim Creat Clear Calc 119 ml/min Estimated GFR > 60 (59 - ) Glucose 90 (65-110) mg/dL Calcium 9.6 (8.4-10.2) mg/dL Total Bilirubin 2.2 H (0.2-1.3) mg/dL AST 42 (17-59) U/L ALT 27 (6-50) U/L Alkaline Phosphatase 81 (38-126) U/L C-Reactive Protein < 0.5 (<1.0) mg/dL Total Protein 8.0 (6.3-8.2) g/dL Albumin 5.0 (3.5-5.1) g/dL Lipase 135 (23-300) U/L Urine Color Yellow (Yellow) Urine Appearance Clear (Clear) Urine pH 6.5 (5.0-9.0) Ur Specific [place] 1.021 (1.001-1.035) Urine Protein Negative (Negative) mg/dL Urine Glucose (UA) Negative (Negative) mg/dL Urine Ketones Negative (Negative) mg/dL Ur Blood (Man) Negative (Negative) Urine Nitrate Negative (Negative) Urine Bilirubin Negative (Negative) Urine Urobilinogen 1.0 (<2.0) mg/dL Leukocyte Esterase Rfl Negative (Negative) GEN/UL C. trachomatis (PCR) Not detected (NOT DETECTE) N. gonorrhoeae (PCR) Not detected (NOT DETECTE) <Sergio Vargas PA-C - Last Filed: 10/20/24 02:31> Lab Results 10/19/24 10/19/24 10/20/24 Range/Units 22:54 23:16 04:57 WBC 13.9 H (4.5-10.0) K/mm3 RBC 4.04 L (4.6-6.20) M/mm3 Hgb 12.1 L (14.0-18.0) g/dL Hct 35.9 L (42.0-52.0) % MCV 88.9 (80-100) fl MCH 30.0 (26-34) pg MCHC 33.7 (32-36) g/dl RDW 18.1 H (11.5-14.5) % Plt Count 255 (150-375) k/mm3 MPV 10.3 (7.4-10.4) fl Immature Gran % (Auto) 0.5 (0-0.5) % Neut % (Auto) 69.0 (45.5-73.1) % Lymph % (Auto) 24.1 (18.3-44.2) % [place] % (Auto) 4.3 (2.6-8.5) % Eos % (Auto) 1.2 (0-4.4) % Baso % (Auto) 0.9 (0.2-1.2) % Lymph # (Auto) 3.34 H (0.9-3.2) K/mm3 [place] # (Auto) 0.6 (0.1-0.6) K/mm3 Eos # (Auto) 0.2 (0-0.3) K/mm3 Baso # (Auto) 0.1 (0.0-0.1) K/mm3 Abs Immat Gran (auto) 0.07 H (0.00-0.031) K/mm3 Absolute Neuts (auto) 9.6 H (1.3-6.7) K/mm3 Absolute Nucleated RBC 0.000 (0.0-0.012) K/mm3 Nucleated RBC % 0.0 (0.0-0.2) % ESR 21 H (0-20) mm/hr Sodium 142 (137-145) mmol/L Potassium 3.9 (3.4-5.0) mmol/L Chloride 102 (98-107) mmol/L Carbon Dioxide 28 (22-30) mmol/L Anion Gap 12 (4-12) mmol/L BUN 16 (9-20) mg/dL Creatinine 0.78 (0.7-1.3) mg/dL Estim Creat Clear Calc 119 ml/min Estimated GFR > 60 (59 - ) Glucose 90 (65-110) mg/dL Calcium 9.6 (8.4-10.2) mg/dL Total Bilirubin 2.2 H (0.2-1.3) mg/dL AST 42 (17-59) U/L ALT 27 (6-50) U/L Alkaline Phosphatase 81 (38-126) U/L C-Reactive Protein < 0.5 (<1.0) mg/dL Total Protein 8.0 (6.3-8.2) g/dL Albumin 5.0 (3.5-5.1) g/dL Lipase 135 (23-300) U/L Urine Color Yellow (Yellow) Urine Appearance Clear (Clear) Urine pH 6.5 (5.0-9.0) Ur Specific [place] 1.021 (1.001-1.035) Urine Protein Negative (Negative) mg/dL Urine Glucose (UA) Negative (Negative) mg/dL Urine Ketones Negative (Negative) mg/dL Ur Blood (Man) Negative (Negative) Urine Nitrate Negative (Negative) Urine Bilirubin Negative (Negative) Urine Urobilinogen 1.0 (<2.0) mg/dL Leukocyte Esterase Rfl Negative (Negative) GEN/UL C. trachomatis (PCR) Not detected (NOT DETECTE) N. gonorrhoeae (PCR) Not detected (NOT DETECTE) <Jemima Browne MD - Last Filed: 10/20/24 14:58> Imaging Data Radiologist's impression: ITS Impressions Abdomen/Pelvis CT 10/20/24 06:13 Impression: Probable infectious/inflammatory colitis involving the distal sigmoid colon and rectum. Marked splenomegaly, of uncertain etiology. Scrotum Ultrasound 10/20/24 06:15 Impression: Right epididymoorchitis. No evidence of torsion. Possible 1 cm hypoechoic mass within the enlarged right epididymis. This is nonspecific, but epididymal masses are most commonly benign. Consider follow-up exam after interval therapy. <Sergio Vargas PA-C - Last Filed: 10/20/24 02:31> ITS Impressions Abdomen/Pelvis CT 10/20/24 06:13 Impression: Probable infectious/inflammatory colitis involving the distal sigmoid colon and rectum. Marked splenomegaly, of uncertain etiology. Scrotum Ultrasound 10/20/24 06:15 Impression: Right epididymoorchitis. No evidence of torsion. Possible 1 cm hypoechoic mass within the enlarged right epididymis. This is nonspecific, but epididymal masses are most commonly benign. Consider follow-up exam after interval therapy. CT Stat RAD ABD & Pelvis with contrast: No evidence of radiopaque renal calculi or signs of collecting system dilatation. Diffuse annular thickening of the sigmoid colon and rectum. Findings are favored to relate to proctocolitis. Consider correlation with laboratory values. No evidence of bowel obstruction. Normal appendix. Splenomegaly with the spleen measuring to 18.1 cm in AP dimension. No other acute findings. CT Stat rad US SCrotal: there is increased vascularity in the right testis and right epididymis suspicious for acute epididymitis orchitis. There is a hypoechoic mass lateral to the right testis measuring 1.1 x 1.0 x 0.9 cm. No evidence of testicular torsion. No incidental findings. <Jemima Browne MD - Last Filed: 10/20/24 14:58> Discharge Plan Discharge Clinical Impression: Abdominal pain, Splenomegaly, Leukocytosis, Anemia, Proctocolitis, Orchitis and epididymitis <Sergio Vargas PA-C - Last Filed: 10/20/24 02:31> Patient Disposition: Home, Self-Care <Sergio Vargas PA-C - Last Filed: 10/20/24 02:31> Condition: Stable <Sergio Vargas PA-C - Last Filed: 10/20/24 02:31> Instructions: Antibiotic Form, Epididymo-Orchitis (ED), Leukocytosis (ED), Abdominal Pain (ED), Anemia (ED), Colitis (ED) <Sergio Vargas PA-C - Last Filed: 10/20/24 02:31> Additional Instructions: You had some inflammation on your CT scan however this does not appear to be a UC flare, but rather possibly referred pain from the epididymitis orchitis. Follow-up with your primary care physician and or GI doctor. you received your 1st dose of antibiotic for scrotal findings in the emergency department with the rest of the course prescribed. Follow-up with urology in 1 week, Either with the urologist you had seen earlier or, if unable to see them, the name of a urologist is listed below. It is safe to take a maximum 4000 mg acetaminophen/Tylenol per day. <Sergio Vargas PA-C - Last Filed: 10/20/24 02:31> Patient Language: Togolese <Sergio Vargas PA-C - Last Filed: 10/20/24 02:31> Prescriptions: New acetaminophen 500 mg capsule 1,000 mg PO Q6H PRN (Reason: pain) Qty: 30 0RF levofloxacin 500 mg tablet 500 mg PO DAILY Qty: 9 0RF Rx Instructions: rec'd first dose in ED 10/20; take rest of course starting 10/21 oxycodone 5 mg capsule 5 mg PO Q8H PRN (Reason: pain) Qty: 7 0RF No Action multivitamin Tablet 1 tablet PO DAILY ferrous sulfate [Iron (ferrous sulfate)] 325 mg (65 mg iron) Tablet 325 mg PO DAILY <Sergio Vargas PA-C - Last Filed: 10/20/24 02:31> Follow-up/Referrals: Harms,Tal Frazier M.D. [Primary Care Provider] - Maxi Marcano MD [Physician] - (urology) <Sergio Vargas PA-C - Last Filed: 10/20/24 02:31> Stand Alone Forms: Work/School Release IP <Sergio Vargas PA-C - Last Filed: 10/20/24 02:31> Time of Disposition: 07:05 <Sergio Vargas PA-C - Last Filed: 10/20/24 02:31> 07:05 <Jemima Browne MD - Last Filed: 10/20/24 14:58>
[2024-10-20] MEDS: HYDROmorphone HCL INJ (*CRX) 1 MG/ML SYR 0.5 MG IV PUSH ×3 (02:33→05:06)
[2024-10-20] MEDS: SODIUM CHLORIDE 0.9% IV 1,000 ML 999 ML IV CONT (03:18)
--- OUTSIDE RECORDS SUMMARY | 2024-10-20 03:27 | XMS_ITS | Encounter Summary ---
Author Organization [facility] Healthcare Address [address] [place] [address] Care Team Providers Care Valve Steamer Name Role Phone aTl Cotto MD Primary Care Provider [phone] Reason for Referral * Diagnostic Lab (Routine) - Pending Review Specialty Diagnoses / Procedures Referred By Contac t Referred To Contact Lab Diagnoses Spherocytosis (CMS/HCC) (HCC) Ulcerative colitis with complication, unspecified location (HCC) Procedures calprotectin fecal - Miscellaneous Test calprotectin fecal - [place] [address] [place] [address] Phone: tel: fax: Referral ID Status Reason Start Date Expiration Date V isits Requested Visits Authorized [id number] Pending Review 12/15/2023 01/13/2025 1 1 ICAL ASST Encounter Details Date Type Department Care Team (Latest Contact Info) Description 10/18/2024 2:21 PM CLINICAL ASST - 10/18/2024 11:59 PM CLINICAL ASST Hospital Encounter [facility] [address] [place] [address] Spherocytosis (CMS/HCC) (HCC); Ulcerative colitis [...] on file Legal Sex Male 1:12 AM CLINICAL ASST Gender Identity Not on file Sexual Orientation [...] complication, unspecified location (HCC) 10/18/2024 2:21 PM CLINICAL ASST Scheduled Orders Name Type Priority Associated Diagnoses Orde r Schedule calprotectin fecal - Miscellaneous Test Lab Routine Spherocytosis (CMS/HCC) (HCC) Ulcerative colitis with complication, unspecified location (HCC) Once for 1 Occurrences starting 10/18/2024 until 10/18/2024 documented as of this encounter Visit Diagnoses Diagnosis Spherocytosis (CMS/HCC) (HCC) Hereditary spherocytosis Ulcerative colitis with complication, unspecified location (HCC) documented in this encounter Care Teams Valve Steamer Relationship Specialty Start Date End Date Tal Cotto MD [address] [place] [address] PCP - General Family Medicine 03/06/22 documented as of this encounter
--- OUTSIDE RECORDS SUMMARY | 2024-10-20 03:28 | XMS_ITS | Clinical Summary ---
Author Organization [facility] Address [address] [place] [address] Care Team Providers Care Skein Yarn Drier Name Role Phone Tal Cotto MD Primary Care Provider [phone] Allergies Active Allergy Reactions Criticality Noted Date Comments Sulfa (Sulfonamide Antibiotics) Medications ferrous sulfate 325 mg (65 mg of elemental iron) tablet 05/22/2016 Active vedolizumab (ENTYVIO) 300 mg recon soln 5 mL (300 mg total) Active multivitamin tablet,chewable Take by mouth Active magnesium gluconate 200 mg tabletIndication s:hypomagnesemia 1 tablet (200 mg total) Active Active Problems Problem Noted Date Diagnosed Date Dyspepsia 09/20/2024 History of right inguinal hernia 08/31/2024 Assessment & Plan (08/31/2024 10:44 AM PROSPECTING DRILLER HELPER): No palpable recurrent hernia on exam. Suspicous for possible nerve entrapment and will monitor respnose. Sperm granuloma of epididymis 08/31/2024 Assessment & Plan (08/31/2024 10:44 AM PROSPECTING DRILLER HELPER): Continue f/u with urology. Complete course of doxycycline and will follow response. RLQ abdominal pain 08/31/2024 Assessment & Plan (08/31/2024 10:45 AM PROSPECTING DRILLER HELPER): No evidence of an acute abdomen. No rebound/no periotoneal s/s. Check for anatomic evaluation of the right lower quadrant and will monitor response. Reviwed ER warning s/s. Annual physical exam 07/05/2024 Ulcerative colitis with complication, unspecifie d location 12/15/2023 Assessment & Plan (08/31/2024 10:44 AM PROSPECTING DRILLER HELPER): No blood in the stools, no change in diet, no f/c. Continues on entyvio and willl follow response. Spherocytosis (CMS/HCC) 12/15/2023 Chronic ulcerative pancolitis (CMS/HCC) 06/25/20 20 Polyp of colon 06/25/2020 Encounters Date Type Department Care Team Description 10/18/2024 2:21 PM PROSPECTING DRILLER HELPER - 10/18/2024 11:59 PM PROSPECTING DRILLER HELPER Hospital Encounter [address] [id number] Spherocytosis (CMS/HCC) (HCC); Ulcerative colitis with complication, unspecified location ([facility]) Discharge Disposition: Discharge to home or self care 10/18/2024 2:15 PM PROSPECTING DRILLER HELPER Lab [facility] Outpatient Lab at [address] [phone] 09/28/2024 Telephone [facility] [address] [phone] Tal Cotto MD Additional Services Or Orders 09/21/2024 Telephone [facility] [address] [phone] Tal Cotto MD Test Results 09/20/2024 3:30 PM PROSPECTING DRILLER HELPER Lab [facility] Outpatient Lab at [address] [phone] 09/20/2024 3:14 PM PROSPECTING DRILLER HELPER - 09/20/2024 11:59 PM PROSPECTING DRILLER HELPER Hospital Encounter [address] [phone] Dyspepsia Discharge Disposition: Discharge to home or self care 09/20/2024 3:00 PM PROSPECTING DRILLER HELPER Office Visit [facility] Primary Care at [address] [phone] Tal Cotto MD Dyspepsia (Primary Dx); Ulcerative chronic pancolitis without complications (CMS/HCC) (HCC) 09/16/2024 2:00 PM PROSPECTING DRILLER HELPER Lab [facility] Outpatient Lab at [address] [address] Ulcerative colitis with complication, unspecified location (HCC) (Primary Dx); RLQ abdominal pain 09/16/2024 9:15 AM PROSPECTING DRILLER HELPER - 09/16/2024 11:59 PM PROSPECTING DRILLER HELPER Hospital Encounter [address] [id number] Annual physical exam Discharge Disposition: Discharge to home or self care 09/16/2024 Telephone [facility] [address] [phone] Tal Cotto MD 09/01/2024 Telephone [facility] [address] [phone] Tal Cotto MD Test Results 08/31/2024 10:00 AM PROSPECTING DRILLER HELPER Office Visit [facility] [address] [phone] Tal Cotto MD RLQ abdominal pain (Primary Dx); Sperm granuloma of epididymis; Ulcerative colitis with complication, unspecified location (HCC); History of right inguinal hernia 08/31/2024 Orders Only [facility] [address] [phone] Tal Cotto MD RLQ abdominal pain 08/31/2024 Telephone [facility] [address] [phone] Monica Melgoza RN Diagnostic Testing (CT ABDOMEN PELVIS WO CONTRAST) 08/30/2024 Nurse Triage [facility] [address] [phone] Tal Cotto MD 08/10/2024 6:27 PM PROSPECTING DRILLER HELPER - 08/10/2024 11:59 PM PROSPECTING DRILLER HELPER Hospital Encounter [address] [phone] Pain in right testicle Discharge Disposition: Discharge to home or self care 08/10/2024 3:45 PM PROSPECTING DRILLER HELPER Office Visit [facility] at [address] [phone] Miriam Bassett NP Pain in right testicle (Primary Dx) 08/10/2024 Nurse Triage [facility] [address] [place] [address] Tal Cotto MD from Last [...] on file Legal Sex Male 1:12 AM PROSPECTING DRILLER HELPER Gender Identity Not on file Sexual Orientation Not on file Obstetrics History Last Filed Vital Signs Vital Sign Reading Time Taken Comments Blood Pressure 124/70 09/20/2024 2:56 PM PROSPECTING DRILLER HELPER Pulse 63 09/20/2024 2:56 PM PROSPECTING DRILLER HELPER Temperature 36.7 C (98.1 F) 09/20/2024 2:56 PM PROSPECTING DRILLER HELPER Respiratory Rate 18 08/31/2024 10:0 1 AM PROSPECTING DRILLER HELPER Oxygen Saturation 98% 09/20/2024 2:56 PM PROSPECTING DRILLER HELPER Inhaled Oxygen Concentration - - Weight 84.8 kg (186 lb 14.4 oz) 09/20/2024 2:56 PM PROSPECTING DRILLER HELPER Height 182.9 cm (6') 09/20/2024 2:56 PM PROSPECTING DRILLER HELPER Body Mass Index 25.35 09/20/2024 2:56 PM PROSPECTING DRILLER HELPER Plan of Treatment Health Maintenance Due Date Last Done Comments Hepatitis C Screening 1983 Varicella Vaccines (1 of 2 - 13+ 2-dose series) 1996 Covid-19 Vaccine (2023- season) 2024 07/22/2021, 11/15/2020, 10/23/2020 DTaP/Tdap/Td Vaccine [...] Diagnosis Comments EGFR Routine 09/20/2024 3:24 PM PROSPECTING DRILLER HELPER Dyspepsia DIFFERENTIAL AUTO Routine 09/20/2024 3:2 4 PM PROSPECTING DRILLER HELPER Dyspepsia LIPASE Routine 09/20/2024 3:24 PM PROSPECTING DRILLER HELPER Dyspepsia AMYLASE Routine 09/20/2024 3:24 PM PROSPECTING DRILLER HELPER Dyspepsia COMPREHENSIVE METABOLIC PANEL Routine 09/20/2024 3:24 PM PROSPECTING DRILLER HELPER Dyspepsia CBC WITH AUTO DIFFERENTIAL Routine 09/20/2024 3:24 PM PROSPECTING DRILLER HELPER Dyspepsia EGFR Routine 09/16/2024 1:50 PM PROSPECTING DRILLER HELPER Annual physical exam DIFFERENTIAL AUTO Routine 09/16/2024 1:5 0 PM PROSPECTING DRILLER HELPER Annual physical exam LIPID PANEL Routine 09/16/2024 1:50 PM PROSPECTING DRILLER HELPER Annual physical exam COMPREHENSIVE METABOLIC PANEL Routine 09/16/2024 1:50 PM PROSPECTING DRILLER HELPER Annual physical exam CBC WITH AUTO DIFFERENTIAL Routine 09/16/2024 1:50 PM PROSPECTING DRILLER HELPER Annual physical exam CT ABDOMEN PELVIS WO CONTRAST Schedule NEETA, Read NEETA (Appt Today, Awaiting Results) 08/31/2024 2:30 PM PROSPECTING DRILLER HELPER RLQ abdominal pain POCT URINALYSIS DIPSTICK Routine 08/10/2024 2:54 PM PROSPECTING DRILLER HELPER Pain in right testicle URINE CULTURE Routine 08/10/2024 12:00 PM PROSPECTING DRILLER HELPER Pain in right testicle from Last 3 Months Results * eGFR (09/20/2024 3:24 PM PROSPECTING DRILLER HELPER) eGFR >90 >=60 mL/min/1. 73 m2 [...] last reviewed 2021. Blood 09/20/2024 3:24 PM PROSPECTING DRILLER HELPER 09/20/2024 9:41 PM PROSPECTING DRILLER HELPER us Tal Cotto MD LAB BLOOD ORDERABLES Lien alfaro Result [facility] [address] Department [place] [address] * (ABNORMAL) Differential, auto (09/20/2024 3:24 PM PROSPECTING DRILLER HELPER) Pathologist [facility] [place] Neutrophil abs 8.9(H) 1.5 - 6.5 K/cumm Imm gran abs 0.0 0.0 - 0.1 K/cumm [facility] Lymphocyte abs 3.1 0.8 - 3.3 K/cumm [facility] Monocyte abs 0.6 0.2 - 0.8 K/cumm [facility] Eosinophil abs 0.2 0.0 - 0.5 K/cumm [facility] Basophil abs 0.2(H) 0.0 - 0.1 K/cumm [facility] Neutrophil pct 68.3 % [facility] Comment: Interpretive Data Percent cell count reference ranges are not reported, since discordance with absolute values may lead to misinterpretation of CBC data. Current Interpretive Data was last revised on 2017. Imm gran pct 0.3 % [facility] Comment: Interpretive Data Percent cell count reference ranges are not reported, since discordance with absolute values may lead to misinterpretation of CBC data. Current Interpretive Data was last revised on 2017. Lymphocyte pct 23.5 % [facility] Comment: Interpretive Data Percent cell count reference ranges are not reported, since discordance with absolute values may lead to misinterpretation of CBC data. Current Interpretive Data was last revised on 2017. Monocyte pct 4.8 % [facility] Comment: Interpretive Data Percent cell count reference ranges are not reported, since discordance with absolute values may lead to misinterpretation of CBC data. Current Interpretive Data was last revised on 2017. Eosinophil pct 1.7 % [facility] Comment: Interpretive Data Percent cell count reference ranges are not reported, since discordance with absolute values may lead to misinterpretation of CBC data. Current Interpretive Data was last revised on 2017. Basophil pct 1.4 % [facility] Comment: Interpretive Data Percent cell count reference ranges are not reported, since discordance with absolute values may lead to misinterpretation of CBC data. Current Interpretive Data was last revised on 2017. Blood 09/20/2024 3:24 PM PROSPECTING DRILLER HELPER 09/20/2024 9:04 PM PROSPECTING DRILLER HELPER Tal Cotto MD LAB BLOOD ORDERABLES Lien l Result [facility] [address] Department [place] [address] * (ABNORMAL) CBC with auto differential (09/20/2024 3:24 PM PROSPECTING DRILLER HELPER) WBC 13.0(H) 3.8 - 9.9 K/cumm Hgb 10.8(L) 13.0 - 17.5 g/dL [facility] Hct 34.9(L) 38.9 - 50.3 % [facility] Plt 279 150 - 400 K/cumm [facility] MPV 11.4 9.1 - 12.3 fL [facility] RBC 3.59(L) 4.30 - 5.80 M/cumm [facility] MCV 97.2(H) 81.3 - 96.4 fL [facility] MCH 30.1 27.1 - 33.3 pg [facility] MCHC 30.9(L) 32.3 - 35.7 g/dL [facility] RDW CV 20.7(H) 11.1 - 14.9 % [facility] RDW SD 67.1(H) 35.7 - 48.1 fL [facility] NRBC abs 0.03(H) 0.00 - 0.01 K/cumm [facility] Blood 09/20/2024 3:24 PM PROSPECTING DRILLER HELPER 09/20/2024 9:04 PM PROSPECTING DRILLER HELPER Tal Cotto MD LAB BLOOD ORDERABLES Lien l Result Performing Organization Address [facility] Co de Phone Number [facility] [address] [facility] [place] [address] * Lipase (09/20/2024 3:24 PM PROSPECTING DRILLER HELPER) Lipase 35 10 - 99 Units/L Blood 09/20/2024 3:24 PM PROSPECTING DRILLER HELPER 09/20/2024 9:04 PM PROSPECTING DRILLER HELPER Tal Cotto MD LAB BLOOD ORDERABLES Lien l Result Performing Organization Address [facility] Co de Phone Number [facility] [address] [facility] [place] [address] * Amylase (09/20/2024 3:24 PM PROSPECTING DRILLER HELPER) Amylase 54 30 - 99 Units/L Blood 09/20/2024 3:24 PM PROSPECTING DRILLER HELPER 09/20/2024 9:04 PM PROSPECTING DRILLER HELPER Tal Cotto MD LAB BLOOD ORDERABLES Lien l Result Performing Organization Address City/[facility]/ZIP Co de Phone Number [facility] [address] [facility] [place] [address] * (ABNORMAL) Comprehensive metabolic panel (09/20/2024 3:24 PM PROSPECTING DRILLER HELPER) Sodium 140 135 - 145 mmol/L [...] Units/L [facility] Blood 09/20/2024 3:24 PM PROSPECTING DRILLER HELPER 09/20/2024 9:04 PM PROSPECTING DRILLER HELPER us Tal Cotto MD LAB BLOOD ORDERABLES Lien alfaro Result [facility] [address] Department [place] [address] * eGFR (09/16/2024 1:50 PM PROSPECTING DRILLER HELPER) Pathologist [facility] [place] eGFR >90 >=60 mL/min/1. 73 m2 Comment: [...] last reviewed 2021. Blood 09/16/2024 1:50 PM PROSPECTING DRILLER HELPER 09/16/2024 9:17 PM PROSPECTING DRILLER HELPER us Tal Cotto MD LAB BLOOD ORDERABLES Lien l Result [facility] [address] Department [place] [address] * (ABNORMAL) Differential, auto (09/16/2024 1:50 PM PROSPECTING DRILLER HELPER) Pathologist [facility] [place] Neutrophil abs 9.2(H) 1.5 - 6.5 K/cumm Imm gran abs 0.1 0.0 - 0.1 K/cumm [facility] Lymphocyte abs 3.2 0.8 - 3.3 K/cumm [facility] Monocyte abs 0.7 0.2 - 0.8 K/cumm [facility] Eosinophil abs 0.1 0.0 - 0.5 K/cumm [facility] Basophil abs 0.2(H) 0.0 - 0.1 K/cumm [facility] Neutrophil pct 68.2 % [facility] Comment: Interpretive Data Percent cell count reference ranges are not reported, since discordance with absolute values may lead to misinterpretation of CBC data. Current Interpretive Data was last revised on 2017. Imm gran pct 0.5 % [facility] Comment: Interpretive Data Percent cell count reference ranges are not reported, since discordance with absolute values may lead to misinterpretation of CBC data. Current Interpretive Data was last revised on 2017. Lymphocyte pct 23.9 % [facility] Comment: Interpretive Data Percent cell count reference ranges are not reported, since discordance with absolute values may lead to misinterpretation of CBC data. Current Interpretive Data was last revised on 2017. Monocyte pct 5.1 % [facility] Comment: Interpretive Data Percent cell count reference ranges are not reported, since discordance with absolute values may lead to misinterpretation of CBC data. Current Interpretive Data was last revised on 2017. Eosinophil pct 1.0 % [facility] Comment: Interpretive Data Percent cell count reference ranges are not reported, since discordance with absolute values may lead to misinterpretation of CBC data. Current Interpretive Data was last revised on 2017. Basophil pct 1.3 % [facility] Comment: Interpretive Data Percent cell count reference ranges are not reported, since discordance with absolute values may lead to misinterpretation of CBC data. Current Interpretive Data was last revised on 2017. Blood 09/16/2024 1:50 PM PROSPECTING DRILLER HELPER 09/16/2024 9:11 PM PROSPECTING DRILLER HELPER us Tal Cotto MD LAB BLOOD ORDERABLES Lien alfaro Result [facility] [address] Department [place] [address] * (ABNORMAL) CBC with auto differential (09/16/2024 1:50 PM PROSPECTING DRILLER HELPER) WBC 13.5(H) 3.8 - 9.9 K/cumm Hgb 9.9(L) 13.0 - 17.5 g/dL [facility] Hct 31.3(L) 38.9 - 50.3 % [facility] Plt 221 150 - 400 K/cumm [facility] MPV 11.4 9.1 - 12.3 fL [facility] RBC 3.27(L) 4.30 - 5.80 M/cumm [facility] MCV 95.7 81.3 - 96.4 fL [facility] MCH 30.3 27.1 - 33.3 pg [facility] MCHC 31.6(L) 32.3 - 35.7 g/dL [facility] RDW CV 19.6(H) 11.1 - 14.9 % [facility] RDW SD 62.8(H) 35.7 - 48.1 fL [facility] NRBC abs 0.02(H) 0.00 - 0.01 K/cumm [facility] Blood 09/16/2024 1:50 PM PROSPECTING DRILLER HELPER 09/16/2024 9:11 PM PROSPECTING DRILLER HELPER Tal Cotto MD LAB BLOOD ORDERABLES Lien alfaro Result [facility] [address] Department [place] [address] * (ABNORMAL) Lipid panel (09/16/2024 1:50 PM PROSPECTING DRILLER HELPER) Cholesterol 103 30 - 199 mg/dL [...] revised on 2018. Triglycerides 160(H) <=149 mg/dL [facility] Comment: Interpretive Data Ages < or = [...] NCEP Expert Panel. Circulation 2004;110:227 3. Josafat Gupta al. FRANC Cardiol. 2019January 12;5(5):540-548. doi: 10.1001/jamacardio.2020.0013 Current Interpretive Data was [...] 3 [facility] Blood 09/16/2024 1:50 PM PROSPECTING DRILLER HELPER 09/16/2024 9:11 PM PROSPECTING DRILLER HELPER us Tal Cotto MD LAB BLOOD ORDERABLES Lien alfaro Result [facility] [address] Department [place] [address] * (ABNORMAL) Comprehensive metabolic panel (09/16/2024 1:50 PM PROSPECTING DRILLER HELPER) Sodium 138 135 - 145 mmol/L [...] affected. Glucose 84 70 - 199 mg/dL [facility] Comment: Interpretive Data Fasting glucose >/= 126 [...] Albumin 5.0 3.5 - 5.0 g/dL [facility] Alk phos 88 40 - 130 Units/L [facility] ALT 58(H) 7 - 55 Units/L [facility] AST 71(H) 10 - 50 Units/L [facility] Blood 09/16/2024 1:50 PM PROSPECTING DRILLER HELPER 09/16/2024 9:11 PM PROSPECTING DRILLER HELPER Result [facility] Tal Cotto MD LAB BLOOD ORDERABLES Lien l Result [facility] [address] Department [place] [address] * CT Abdomen Pelvis WO Contrast (08/31/2024 2:30 PM PROSPECTING DRILLER HELPER) Anatomical Region Laterality Modality Body N/A Computed Tomogra phy Result [facility] Tal Cotto MD IMG CT PROCEDURES Final R esult * (ABNORMAL) POCT urinalysis dipstick (08/10/2024 2:54 PM PROSPECTING DRILLER HELPER) Color, Urine, POC Juanita Clarity, ur, POC Cloudy(A) Clear Glucose, ur, POC Negative Negative MG/DL Bilirubin, ur, POC Small Negative, Small, Moderate, Large Ketones, ur, POC Negative Negative Specific Eliot, POC 1.030 1.003 - 1.030 Blood, ur, POC Negative Negative pH, ur, POC 6.0 5.0 - 8.0 Protein, ur, POC 30.(A) Negative Urobilinogen, urine, POC 4.0(A) 0.2 - 1.0 mg/dL Nitrite, ur, POC Negative Negative Leukocytes, ur, POC Negative Negative Lot Number [id number] Urine 08/10/2024 2:54 PM PROSPECTING DRILLER HELPER Result [facility] Miriam Bassett NP POINT OF CARE TEST ORDERABLES F inal Result * Urine culture Urine, clean voided (08/10/2024 12:00 PM PROSPECTING DRILLER HELPER) Report Final Report: No growth Comment:Testing performed by : [facility], [address] [place]., [address] Urine, clean voided 08/10/2024 12:00 PM PROSPECTING DRILLER HELPER 08/10/2024 11:05 PM PROSPECTING DRILLER HELPER Kathie MCKINLEY CH - 08/12/2024 8:09 AM PROSPECTING DRILLER HELPER Testing performed by [facility] ([phone]) us Miriam Bassett NP LAB MICROBIOLOGY - GENERAL NATALY PENNY Final Result [facility] [address] Department [place] [address] from Last 3 Months Insurance [place] Care Teams Skein Yarn Drier Relationship Specialty Start Date End Date Tal Cotto MD [address] [place] [id number] PCP - General Family Medicine 03/06/22
--- OUTSIDE RECORDS SUMMARY | 2024-10-20 03:28 | XMS_ITS | Clinical Summary ---
Author Organization [facility] Address [address] [place] [address] Care Team Providers Care Manager Asset Management Name Role Phone Unavailable Primary Care Provider Unavailabl e Source Comments [facility],non-owned Affiliates and Associated Physician Practices is amultiple site organization consisting of ambulatory clinics and hospital sitesin [place], [place], [place] and [place]. This disclosure is being madepursuant to the Care Everywhere program and may not contain all information available regarding this patient. Last updated 18.[facility] Allergies Active Allergy Reactions Criticality Noted Date [...]
--- OUTSIDE RECORDS SUMMARY | 2024-10-20 03:28 | XMS_ITS | Patient Health Summary ---
Author Organization [facility] Address [address] [place] [address] Care Team Providers Care Embossing Machine Operator Helper Name Role Phone Unavailable Primary Care Provider Unavailabl e Note from [facility],non-owned Affiliates and Associated Physician Practices is amultiple site organization consisting of ambulatory clinics and hospital sitesin [place], [place], [place] and [place]. This disclosure is being madepursuant to the Care Everywhere program and may not contain all information available regarding this patient. Last updated 18.[facility] Allergies * Sulfa Drugs(Unknown) Medications * [...]
--- OUTSIDE RECORDS SUMMARY | 2024-10-20 03:28 | XMS_ITS | Referral Summary ---
Author Organization [facility] [address] [facility] lto Address [address] [facility] [address] mar[address] [facility] [place] [address] Care Team Providers Care Framing Mill Operator Name Role Phone Tal Cotto MD Primary Care Provider [phone] Encounters Date Type Department Care Team Description 10/18/2024 2:21 PM POPCORN VENDOR - 10/18/2024 11:59 PM POPCORN VENDOR Hospital Encounter [address] [address] Spherocytosis (CMS/HCC) (HCC); Ulcerative colitis with complication, unspecified location (HCC) Discharge Disposition: Discharge to home or self care 10/18/2024 2:15 PM POPCORN VENDOR Lab [facility] Outpatient Lab at [address] [phone] 09/28/2024 Telephone [facility] [address] [phone] Tal Cotto MD Additional Services Or Orders 09/21/2024 Telephone [facility] [address] [phone] Tal Cotto MD Test Results 09/20/2024 3:14 PM POPCORN VENDOR - 09/20/2024 11:59 PM POPCORN VENDOR Hospital Encounter [address] [address] Dyspepsia Discharge Disposition: Discharge to home or self care 09/20/2024 3:30 PM POPCORN VENDOR Lab [facility] Outpatient Lab at [address] [phone] 09/20/2024 3:00 PM POPCORN VENDOR Office Visit [facility] Medical [facility] Primary Care at [address] [phone] Tal Cotto MD Dyspepsia (Primary Dx); Ulcerative chronic pancolitis without complications (CMS/HCC) (HCC) 09/16/2024 9:15 AM POPCORN VENDOR - 09/16/2024 11:59 PM POPCORN VENDOR Hospital Encounter [address] [address] Annual physical exam Discharge Disposition: Discharge to home or self care 09/16/2024 2:00 PM POPCORN VENDOR Lab [facility] Outpatient Lab at [address] [phone] Ulcerative colitis with complication, unspecified location (HCC) (Primary Dx); RLQ abdominal pain 09/16/2024 Telephone [facility] [address] [phone] Tal Cotto MD 09/01/2024 Telephone [facility] [address] [phone] Tal Cotto MD Test Results 08/31/2024 Orders Only [facility] [address] [phone] Tal Cotto MD RLQ abdominal pain 08/31/2024 Telephone [facility] [address] [phone] Monica Melgoza RN Diagnostic Testing (CT ABDOMEN PELVIS WO CONTRAST) 08/31/2024 10:00 AM POPCORN VENDOR Office Visit [facility] [address] [phone] Tal Cotto MD RLQ abdominal pain (Primary Dx); Sperm granuloma of epididymis; Ulcerative colitis with complication, unspecified location (HCC); History of right inguinal hernia 08/30/2024 Nurse Triage [facility] [address] [phone] Tal Cotto MD 08/10/2024 6:27 PM POPCORN VENDOR - 08/10/2024 11:59 PM POPCORN VENDOR Hospital Encounter [facility] [address] [place] [address] Pain in right testicle Discharge Disposition: Discharge to home or self care 08/10/2024 3:45 PM POPCORN VENDOR Office Visit [facility] Care at [address] [phone] Miriam Bassett NP Pain in right testicle (Primary Dx) 08/10/2024 Nurse Triage [facility] [address] [phone] Tal Cotto MD from Last 3 [...] 08/31/2024 Assessment & Plan (08/31/2024 10:44 AM POPCORN VENDOR): No palpable recurrent hernia on exam. Suspicous for possible nerve entrapment and will monitor respnose. Sperm granuloma of epididymis 08/31/2024 Assessment & Plan (08/31/2024 10:44 AM POPCORN VENDOR): Continue f/u with urology. Complete course of doxycycline and will follow response. RLQ abdominal pain 08/31/2024 Assessment & Plan (08/31/2024 10:45 AM POPCORN VENDOR): No evidence of an acute abdomen. No rebound/no periotoneal s/s. Check for anatomic evaluation of the right lower quadrant and will monitor response. Reviwed ER warning s/s. Annual physical exam 07/05/2024 Ulcerative colitis with complication, unspecifie d location 12/15/2023 Assessment & Plan (08/31/2024 10:44 AM POPCORN VENDOR): No blood in the stools, no change [...] on file Legal Sex Male 1:12 AM POPCORN VENDOR Gender Identity Not on file Sexual Orientation Not on file Last Filed Vital Signs Vital Sign Reading Time Taken Comments Blood Pressure 124/70 09/20/2024 2:56 PM POPCORN VENDOR Pulse 63 09/20/2024 2:56 PM POPCORN VENDOR Temperature 36.7 C (98.1 F) 09/20/2024 2:56 PM POPCORN VENDOR Respiratory Rate 18 08/31/2024 10:0 1 AM POPCORN VENDOR Oxygen Saturation 98% 09/20/2024 2:56 PM POPCORN VENDOR Inhaled Oxygen Concentration - - Weight 84.8 kg (186 lb 14.4 oz) 09/20/2024 2:56 PM POPCORN VENDOR Height 182.9 cm (6') 09/20/2024 2:56 PM POPCORN VENDOR Body Mass Index 25.35 09/20/2024 2:56 PM POPCORN VENDOR Plan of Treatment Not on file Procedures Procedure Name Priority Date/Time Associated Diagnosis Comments EGFR Routine 09/20/2024 3:24 PM POPCORN VENDOR Dyspepsia DIFFERENTIAL AUTO Routine 09/20/2024 3:2 4 PM POPCORN VENDOR Dyspepsia LIPASE Routine 09/20/2024 3:24 PM POPCORN VENDOR Dyspepsia AMYLASE Routine 09/20/2024 3:24 PM POPCORN VENDOR Dyspepsia COMPREHENSIVE METABOLIC PANEL Routine 09/20/2024 3:24 PM POPCORN VENDOR Dyspepsia CBC WITH AUTO DIFFERENTIAL Routine 09/20/2024 3:24 PM POPCORN VENDOR Dyspepsia EGFR Routine 09/16/2024 1:50 PM POPCORN VENDOR Annual physical exam DIFFERENTIAL AUTO Routine 09/16/2024 1:5 0 PM POPCORN VENDOR Annual physical exam LIPID PANEL Routine 09/16/2024 1:50 PM POPCORN VENDOR Annual physical exam COMPREHENSIVE METABOLIC PANEL Routine 09/16/2024 1:50 PM POPCORN VENDOR Annual physical exam CBC WITH AUTO DIFFERENTIAL Routine 09/16/2024 1:50 PM POPCORN VENDOR Annual physical exam CT ABDOMEN PELVIS WO CONTRAST Schedule NEETA, Read NEETA (Appt Today, Awaiting Results) 08/31/2024 2:30 PM POPCORN VENDOR RLQ abdominal pain POCT URINALYSIS DIPSTICK Routine 08/10/2024 2:54 PM POPCORN VENDOR Pain in right testicle URINE CULTURE Routine 08/10/2024 12:00 PM POPCORN VENDOR Pain in right testicle from Last 3 Months Results * eGFR (09/20/2024 3:24 PM POPCORN VENDOR) eGFR >90 >=60 mL/min/1. 73 m2 Comment: [...] last reviewed 2021. Blood 09/20/2024 3:24 PM POPCORN VENDOR 09/20/2024 9:41 PM POPCORN VENDOR us Tal Cotto MD LAB BLOOD ORDERABLES Lien alfaro Result [facility] [address] Department [place] [address] * (ABNORMAL) Differential, auto (09/20/2024 3:24 PM POPCORN VENDOR) Neutrophil abs 8.9(H) 1.5 - 6.5 K/cumm Imm gran abs 0.0 0.0 - 0.1 K/cumm [facility] Lymphocyte abs 3.1 0.8 - 3.3 K/cumm [facility] Monocyte abs 0.6 0.2 - 0.8 K/cumm [facility] Eosinophil abs 0.2 0.0 - 0.5 K/cumm [facility] Basophil abs 0.2(H) 0.0 - 0.1 K/cumm [facility] Neutrophil pct 68.3 % [facility] Comment: Interpretive Data Percent cell count reference ranges are not reported, since discordance with absolute values may lead to misinterpretation of CBC data. Current Interpretive Data was last revised on 2017. Imm gran pct 0.3 % [facility] Comment: Interpretive Data Percent cell count reference ranges are not reported, since discordance with absolute values may lead to misinterpretation of CBC data. Current Interpretive Data was last revised on 2017. Lymphocyte pct 23.5 % [facility] Comment: Interpretive Data Percent cell count reference ranges are not reported, since discordance with absolute values may lead to misinterpretation of CBC data. Current Interpretive Data was last revised on 2017. Monocyte pct 4.8 % [facility] Comment: Interpretive Data Percent cell count reference ranges are not reported, since discordance with absolute values may lead to misinterpretation of CBC data. Current Interpretive Data was last revised on 2017. Eosinophil pct 1.7 % [facility] Comment: Interpretive Data Percent cell count reference ranges are not reported, since discordance with absolute values may lead to misinterpretation of CBC data. Current Interpretive Data was last revised on 2017. Basophil pct 1.4 % [facility] Comment: Interpretive Data Percent cell count reference ranges are not reported, since discordance with absolute values may lead to misinterpretation of CBC data. Current Interpretive Data was last revised on 2017. Blood 09/20/2024 3:24 PM POPCORN VENDOR 09/20/2024 9:04 PM POPCORN VENDOR us Tal Cotto MD LAB BLOOD ORDERABLES Lien angelina Result [place] [address] Department [place] [employer] [address] * (ABNORMAL) CBC with auto differential (09/20/2024 3:24 PM POPCORN VENDOR) WBC 13.0(H) 3.8 - 9.9 K/cumm Hgb 10.8(L) 13.0 - 17.5 g/dL [facility] Hct 34.9(L) 38.9 - 50.3 % [facility] Plt 279 150 - 400 K/cumm [facility] MPV 11.4 9.1 - 12.3 fL [facility] RBC 3.59(L) 4.30 - 5.80 M/cumm [facility] CH MCV 97.2(H) 81.3 - 96.4 fL [facility] CH MCH 30.1 27.1 - 33.3 pg [facility] MCHC 30.9(L) 32.3 - 35.7 g/dL [facility] RDW CV 20.7(H) 11.1 - 14.9 % [facility] CH RDW SD 67.1(H) 35.7 - 48.1 fL [facility] NRBC abs 0.03(H) 0.00 - 0.01 K/cumm [facility] CH Blood 09/20/2024 3:24 PM POPCORN VENDOR 09/20/2024 9:04 PM POPCORN VENDOR Tal Cotto MD LAB BLOOD ORDERABLES Lien l Result [place] [address] Department [place] [employer] [address] * Lipase (09/20/2024 3:24 PM POPCORN VENDOR) Pathologist [facility] Lipase 35 10 - 99 Units/L Blood 09/20/2024 3:24 PM POPCORN VENDOR 09/20/2024 9:04 PM POPCORN VENDOR Tal Cotto MD LAB BLOOD ORDERABLES Lien l Result [place] [address] Department [place] [address] * Amylase (09/20/2024 3:24 PM POPCORN VENDOR) Amylase 54 30 - 99 Units/L Blood 09/20/2024 3:24 PM POPCORN VENDOR 09/20/2024 9:04 PM POPCORN VENDOR Tal Cotto MD LAB BLOOD ORDERABLES Lien l Result [facility] [address] Department [place] [address] * (ABNORMAL) Comprehensive metabolic panel (09/20/2024 3:24 PM POPCORN VENDOR) Sodium 140 135 - 145 mmol/L Potassium, pl 4.2 3.3 - 4.9 mmol/L [facility] Chloride 102 97 - 110 mmol/L [facility] CH CO2 24 22 - 32 mmol/L [facility] CH Anion gap 14 2 - 15 mmol/L [facility] BUN 12 6 - 25 mg/dL [facility] Creatinine 0.86 0.80 - 1.30 mg/dL [facility] Comment:Icteric sample, test results may be affected. Glucose 84 70 - 199 mg/dL [facility] Comment: Interpretive Data Fasting glucose >/= [...] total 3.0(H) 0.1 - 1.2 mg/dL [facility] Protein, pl 7.8 6.5 - 8.5 g/dL [facility] Albumin 5.2(H) 3.5 - 5.0 g/dL [facility] CH Alk phos 90 40 - 130 Units/L [facility] CH ALT 41 7 - 55 Units/L [facility] CH AST 49 10 - 50 Units/L [facility] CH Blood 09/20/2024 3:24 PM POPCORN VENDOR 09/20/2024 9:04 PM POPCORN VENDOR Tal Cotto MD LAB BLOOD ORDERABLES Lien l Result Performing Organization Address [facility] Co de Phone Number [place] [address] Department [place] [employer] [address] * eGFR (09/16/2024 1:50 PM POPCORN VENDOR) Pathologist [facility] eGFR >90 >=60 mL/min/1. 73 m2 Comment: [...] of Race in Diagnosing Kidney Disease, JASN 202). The CKD-EPI equation should not be used for patients with unstable renal function and has not been validated in children and those over 70. Current interpretive data was last reviewed 2021. Blood 09/16/2024 1:50 PM POPCORN VENDOR 09/16/2024 9:17 PM POPCORN VENDOR Tal Cotto MD LAB BLOOD ORDERABLES Lien l Result Performing Organization Address City/[facility]/ZIP Co de Phone Number [place] [address] Department [place] [employer] [address] * (ABNORMAL) Differential, auto (09/16/2024 1:50 PM POPCORN VENDOR) Neutrophil abs 9.2(H) 1.5 - 6.5 K/cumm Imm gran abs 0.1 0.0 - 0.1 K/cumm [facility] Lymphocyte abs 3.2 0.8 - 3.3 K/cumm [facility] Monocyte abs 0.7 0.2 - 0.8 K/cumm [facility] Eosinophil abs 0.1 0.0 - 0.5 K/cumm [facility] Basophil abs 0.2(H) 0.0 - 0.1 K/cumm [facility] Neutrophil pct 68.2 % [facility] Comment: Interpretive Data Percent cell count reference ranges are not reported, since discordance with absolute values may lead to misinterpretation of CBC data. Current Interpretive Data was last revised on 2017. Imm gran pct 0.5 % [facility] Comment: Interpretive Data Percent cell count reference ranges are not reported, since discordance with absolute values may lead to misinterpretation of CBC data. Current Interpretive Data was last revised on 2017. Lymphocyte pct 23.9 % [facility] Comment: Interpretive Data Percent cell count reference ranges are not reported, since discordance with absolute values may lead to misinterpretation of CBC data. Current Interpretive Data was last revised on 2017. Monocyte pct 5.1 % [facility] Comment: Interpretive Data Percent cell count reference ranges are not reported, since discordance with absolute values may lead to misinterpretation of CBC data. Current Interpretive Data was last revised on 2017. Eosinophil pct 1.0 % [facility] Comment: Interpretive Data Percent cell count reference ranges are not reported, since discordance with absolute values may lead to misinterpretation of CBC data. Current Interpretive Data was last revised on 2017. Basophil pct 1.3 % [facility] Comment: Interpretive Data Percent cell count reference ranges are not reported, since discordance with absolute values may lead to misinterpretation of CBC data. Current Interpretive Data was last revised on 2017. Blood 09/16/2024 1:50 PM POPCORN VENDOR 09/16/2024 9:11 PM POPCORN VENDOR Tal Cotto MD LAB BLOOD ORDERABLES Lien alfaro Result [facility] [id number] Department [place] [address] * (ABNORMAL) CBC with auto differential (09/16/2024 1:50 PM POPCORN VENDOR) WBC 13.5(H) 3.8 - 9.9 K/cumm Hgb [...] NRBC abs 0.02(H) 0.00 - 0.01 K/cumm [facility] Blood 09/16/2024 1:50 PM POPCORN VENDOR 09/16/2024 9:11 PM POPCORN VENDOR us Tal Cotto MD LAB BLOOD ORDERABLES Lien l Result [place] [address] Department [place] [address] * (ABNORMAL) Lipid panel (09/16/2024 1:50 PM POPCORN VENDOR) Cholesterol 103 30 - 199 mg/dL Comment: [...] on 2024. Non-HDL Cholesterol 73 mg/dL [facility] Comment: Interpretive Data Ages < or = [...] revised on 2018. Chol/HDL ratio 3 [facility] Blood 09/16/2024 1:50 PM POPCORN VENDOR 09/16/2024 9:11 PM POPCORN VENDOR us Tal Cotto MD LAB BLOOD ORDERABLES Lien l Result [facility] [address] Department [place] [address] * (ABNORMAL) Comprehensive metabolic panel (09/16/2024 1:50 PM POPCORN VENDOR) Sodium 138 135 - 145 mmol/L Potassium, [...] Units/L [facility] CH Blood 09/16/2024 1:50 PM POPCORN VENDOR 09/16/2024 9:11 PM POPCORN VENDOR Tal Cotto MD LAB BLOOD ORDERABLES Lien l Result [facility] [address] Department [place] [address] * CT Abdomen Pelvis WO Contrast (08/31/2024 2:30 PM POPCORN VENDOR) Anatomical Region Laterality Modality Body N/A Computed Tomogra phy Tal Cotto MD IMG CT PROCEDURES Final R esult * (ABNORMAL) POCT urinalysis dipstick (08/10/2024 2:54 PM POPCORN VENDOR) Color, Urine, POC Juanita Clarity, ur, POC Cloudy(A) Clear Glucose, ur, POC Negative Negative MG/DL Bilirubin, ur, POC Small Negative, Small, Moderate, Large Ketones, ur, POC Negative Negative Specific [place], POC 1.030 1.003 - 1.030 Blood, ur, POC Negative Negative pH, ur, POC 6.0 5.0 - 8.0 Protein, ur, POC 30.(A) Negative Urobilinogen, urine, POC 4.0(A) 0.2 - 1.0 mg/dL Nitrite, ur, POC Negative Negative Leukocytes, ur, POC Negative Negative Lot Number [id number] Urine 08/10/2024 2:54 PM POPCORN VENDOR Miriam Bassett NP POINT OF CARE TEST ORDERABLES F inal Result * Urine culture Urine, clean voided (08/10/2024 12:00 PM POPCORN VENDOR) Report Final Report: No growth Comment:Testing performed by : [facility], [address] [place]., [address] Urine, clean voided 08/10/2024 12:00 PM POPCORN VENDOR 08/10/2024 11:05 PM POPCORN VENDOR Narrative [facility] - 08/12/2024 8:09 AM POPCORN VENDOR Testing performed by [facility] Microbiology Laboratory ([phone]) Miriam Bassett NP LAB MICROBIOLOGY - [facility] Final Result [facility] [address] [place] [address] from Last 3 Months Insurance [facility] [place]PO [place] Care Teams Framing Mill Operator Relationship Specialty Start Date [place] [address] PCP - General Family Medicine 03/06/22
--- OUTSIDE RECORDS SUMMARY | 2024-10-20 03:28 | XMS_ITS | Referral Summary ---
Author Organization [facility] Address [address] [place] [address] Care Team Providers Care Metal Furniture Polisher Name Role Phone Unavailable Primary Care Provider Unavailabl e Source Comments [facility],non-owned Affiliates and Associated Physician Practices is amultiple site organization consisting of ambulatory clinics and hospital sitesin [place], [place], [place] and [place]. This disclosure is being madepursuant to the Care Everywhere program and may not contain all information available regarding this patient. Last updated 18.[facility] [place] Allergies Active Allergy Reactions Criticality Noted Date [...]
[2024-10-20 05:01] VITALS: BP 132/64; PULSE 84; RESP 15; O2SAT 100
[2024-10-20 05:25] LABS: CRP < 0.5 mg/dL (<1.0)
[2024-10-20 05:52] LABS: Erythrocyte Sedimentation Rate 21 mm/hr (0-20)
[2024-10-20 06:45] LABS: Chlamydia trachomatis NOT DETECTED (NOT DETECTE); Neisseria gonorrhoeae PCR NOT DETECTED (NOT DETECTE)
[2024-10-20] MEDS: levoFLOXacin 500 MG TABLET PO (07:03)
[2024-10-20] MEDS: KETOROLAC 15 MG/ML VIAL (*BKC) IV PUSH (07:05)
[2024-10-20] MEDS: ACETAMINOPHEN 500 MG TABLET 1000 MG PO (07:05)
[2024-10-20 07:20] VITALS: BP 134/68; PULSE 67; RESP 16; O2SAT 100
== END 2024-10-20 07:24 | disposition home or self-care (01) ==
PROVIDERS: Physician Assistant; Emergency Provider Student in an Organized Health Care Education/Training Program; PCP Family Medicine
DX: R16.1 Splenomegaly, not elsewhere classified (principal); D72.829 Elevated white blood cell count, unspecified; D64.9 Anemia, unspecified; N45.2 Orchitis; N45.1 Epididymitis
CPT/HCPCS: 36415; 74177; 76870; 80053; 81003; 83690; 85025; 85652; 86140; 87491; 87591; 93976; 96361; 96374; 96375; 96376; 99284; A9270; J1171; J1885; J7030; Q9967